=== PATIENT | female | born 1935 | race Caucasian/White ===

== ENCOUNTER 2019-03-19 11:39 | Emergency (ER) | payer MEDICARE ==
[2019-03-19 11:49] VITALS: BP 185/81; PULSE 73; RESP 18; TEMP 97.4
[2019-03-19 12:21] LABS: Basophils # (A) 0.1 k/uL (0-0.2); Basophils % (A) 1 %; Eosinophils # (A) 0.2 k/uL (0-0.7); Eosinophils % (A) 2 %; HCT 44.5 % (34.0-46.0); HGB 15.3 gm/dL (11.4-16.0); Lymphocytes # (A) 1.3 k/uL (1.0-4.8); Lymphocytes % (A) 16 %; MCH 29.4 pg (25.0-35.0); MCHC 34.2 g/dL (31.0-37.0); Mean Platelet Volume 7.3; Monocytes # (A) 0.6 k/uL (0-1.0); Monocytes % (A) 8 %; Neutrophils % (A) 72 %; Platelet Count 262 k/uL (150-450); RBC 5.18 m/uL (3.80-5.40); RDW 12.9 % (11.5-15.5); WBC 8.4 k/uL (3.8-10.6)
[2019-03-19 12:28] LABS: Calcium 9.8 mg/dL (8.4-10.2); Potassium 4.1 mmol/L (3.5-5.1)
[2019-03-19 12:35] LABS: INR 1.2 (<1.2); Partial Thromboplastin Time 31.1 sec (22.0-30.0)
--- NOTE | 2019-03-19 12:48 | ED ---
General Adult HPI - General Chief complaint: Head Injury Stated complaint: Fall Time Seen by Provider: 03/19/19 11:50 Source: patient Mode of arrival: ambulatory Limitations: no limitations - History of Present Illness Initial comments: Dictation was produced using [employer] dictation software. please excuse any grammatical, word or spelling errors. Chief Complaint: 84-year-old female past medical history of atrial fibrillation presents after head trauma. History of Present Illness: 84-year-old female earlier today she tripped on a ru g in her bathroom. Patient states she stumbled obliquely causing her to strike the posterior part of her head. Patient states she has some mild pain over the right occiput. Patient is currently on Xarelto for age or fibrillation. Patient denies any headache. She does complain of some point tenderness to the back of her head. No other pain complaints at this time. Denies any focal neurologic deficits. No vision changes The ROS documented in this emergency department record has been reviewed and confirmed by me. Those systems with pertinent positive or negative responses have been documented in the HPI. All other systems are other negative and/or noncontributory. PHYSICAL EXAM: General Impression: Alert and oriented x3, not in acute distress HEENT: Small 1 x 1 cm hematoma over the right occiput just off midline, extra- ocular movements intact, pupils equal and reactive to light bilaterally, mucous membranes moist. Cardiovascular: Heart regular rate and rhythm, S1&S2 audible, no murmurs, rubs or gallops Chest: Lungs clear to auscultation bilaterally, no rhonchi, no wheeze, no rales Abdomen: Bowel sounds present, abdomen soft, non-tender, non-distended, no organomegaly Musculoskeletal: Pulses present and equal in all extremities, no peripheral edema Motor: no focal deficits noted Neurological: CN II-XII grossly intact, no focal motor or sensory deficits noted Skin: Intact with no visualized rashes Psych: Normal affect and mood ED course: 84-year-old female presents with head contusion. She is on Xarelto for atrial fibrillation. As upon arrival are within acceptable limits. Patient's well-appearing with small evidence of contusion over the right occiput. Laboratory evaluation obtained. CBC unremarkable. Coag panel was within acceptable limits. Metabolic panel shows slight acidosis. Computed tomography scan of the head and C-spine were negative for any acute processes. Patient is reevaluated at bedside is well-appearing. She is ambulatory without complications. Discussed patient that she had some slight acidosis on her metabolic panel. She is advised to follow-up with her primary care physician regarding this. EKG interpretation: Ventricular rate 71, sinus rhythm, IA interval 210, QS 92, QTC 491. No IA prolongation, no QTC prolongation, no ST or T-wave changes noted. Overall, this EKG is unremarkable - Related Data Home Medications Medication Instructions Recorded Confirmed Aspirin 81 mg PO DAILY 11/08/14 12/07/15 Levothyroxine Sodium [Synthroid] 125 mcg PO DAILY 11/08/14 12/07/15 Lisinopril [Prinivil] 20 mg PO DAILY 11/08/14 12/07/15 Rivaroxaban [Xarelto] 20 mg PO HS 11/08/14 12/07/15 amLODIPine [Norvasc] 10 mg PO DAILY 11/08/14 12/07/15 Metoprolol Tartrate [Lopressor] 50 mg PO BID 11/10/14 12/07/15 Allergies Allergy/AdvReac Type Severity Reaction Status Date / Time Sulfa (Sulfonamide Allergy Rash/Hives Verified 12/07/15 23:07 Antibiotics) Review of Systems ROS Statement: Those systems with pertinent positive or pertinent negative responses have been documented in the HPI. ROS Other: All systems not noted in ROS Statement are negative. Past Medical History Past Medical History: Atrial Fibrillation, Cancer, Osteoarthritis (OA), Thyroid Disorder Additional Past Medical History / Comment(s): See Dr Pierson's H&P , BREAST CANCER, History of Any Multi-Drug Resistant Organisms: None Reported Past Surgical History: Hysterectomy, Joint Replacement Additional Past Surgical History / Comment(s): 01-22-15 EP STUDY/CARDIAC ABLATION . THER PAST MEDICAL HX INCLUDES: bilat knee REPLACMENTS, thyroidectomy, and lumpectomy with radiation in 1986 Past Anesthesia/Blood Transfusion Reactions: No Reported Reaction Past Psychological History: No Psychological Hx Reported Smoking Status: Never smoker Past Alcohol Use History: Occasional Past Drug Use History: None Reported - Past Family History Mother Family Medical History: Cancer Father History Unknown: Yes General Exam Limitations: no limitations Course Vital Signs 03/19/19 11:45 Temperature 97.4 F L Pulse Rate 73 Respiratory 18 Rate Blood Pressure 185/81 O2 Sat by Pulse 98 Oximetry Medical Decision Making - Lab Data Result diagrams: 03/19/19 12:02 03/19/19 12:02 Lab Results 03/19/19 03/19/19 03/19/19 Range/Units 12:02 12:02 12:02 WBC 8.4 (3.8-10.6) k/uL RBC 5.18 (3.80-5.40) m/uL Hgb 15.3 (11.4-16.0) gm/dL Hct 44.5 (34.0-46.0) % MCV 86.0 (80.0-100.0) fL MCH 29.4 (25.0-35.0) pg MCHC 34.2 (31.0-37.0) g/dL RDW 12.9 (11.5-15.5) % Plt Count 262 (150-450) k/uL Neutrophils % 72 % Lymphocytes % 16 % Monocytes % 8 % Eosinophils % 2 % Basophils % 1 % Neutrophils # 6.0 (1.3-7.7) k/uL Lymphocytes # 1.3 (1.0-4.8) k/uL Monocytes # 0.6 (0-1.0) k/uL Eosinophils # 0.2 (0-0.7) k/uL Basophils # 0.1 (0-0.2) k/uL PT 12.0 (9.0-12.0) sec INR 1.2 H (<1.2) APTT 31.1 H (22.0-30.0) sec Sodium 142 (137-145) mmol/L Potassium 4.1 (3.5-5.1) mmol/L Chloride 108 H (98-107) mmol/L Carbon Dioxide 21 L (22-30) mmol/L Anion Gap 13 mmol/L BUN 18 H (7-17) mg/dL Creatinine 0.74 (0.52-1.04) mg/dL Est GFR (CKD-EPI)AfAm 86 (>60 ml/min/1.73 sqM) Est GFR (CKD-EPI)NonAf 75 (>60 ml/min/1.73 sqM) Glucose 126 H (74-99) mg/dL Calcium 9.8 (8.4-10.2) mg/dL Disposition Clinical Impression: Closed head injury Disposition: HOME SELF-CARE Condition: Good Instructions (If sedation given, give patient instructions): Head Injury (ED) Additional Instructions: There is some slight abnormalities in metabolic panel. At advised that she follow-up with her primary care physician regarding this. Is patient prescribed a controlled substance at d/c from ED?: No Referrals: Lita Mayorga MD [Primary Care Provider] - 1-2 days Time of Disposition: 12:58
--- NOTE | 2019-03-19 12:49 | CT ---
EXAMINATION TYPE: CT brain jihan santos DATE OF EXAM: 03/19/2019 COMPARISON: NONE HISTORY: Fall, struck head against wall CT DLP: 1558.5 mGycm Automated exposure control for dose reduction was used. TECHNIQUE: CT scan of the head and cervical spine are performed without contrast. FINDINGS: BRAIN: There are mild, generalized changes of sulcal prominence and ventriculomegaly compatible with atrophic change. There is diffuse periventricular white matter lucency compatible with chronic white matter ischemic change. There is no acute focal lesion, mass effect or midline shift identified. I do not see evidence of intracranial blood. Visualized portions of the paranasal sinuses and mastoids are clear. The bony calvarium is intact. IMPRESSION: 1. NO ACUTE INTRACRANIAL ABNORMALITY. 2. MILD DEGENERATIVE CHANGE. FINDINGS: Visualized portions of the lungs are clear. Prevertebral soft tissues are normal. Vertebral body height and alignment are maintained. Atlantoaxial relationships are normal. There is mild, diffuse degenerative disc disease with relative sparing C2-3. There is mild hypertroph ic spondylosis throughout the cervical spine with relative sparing of C2-3. There is mild, diffuse un covertebral joint disease. There is mild facet arthropathy on the left at C2-3. No definite protrusio n is seen. No fractures are identified. IMPRESSION: 1. NO ACUTE OSSEOUS LESION. 2. MILD DEGENERATIVE CHANGE.
== END 2019-03-19 13:05 | disposition home or self-care (01) ==
LOC: EC 11:39
DX: S00.03XA Contusion of scalp, initial encounter (principal); E87.2 Acidosis; I48.91 Unspecified atrial fibrillation; M19.90 Unspecified osteoarthritis, unspecified site; E07.9 Disorder of thyroid, unspecified; Z88.2 Allergy status to sulfonamides; Z79.01 Long term (current) use of anticoagulants; Z79.82 Long term (current) use of aspirin; Z79.890 Hormone replacement therapy; Z79.899 Other long term (current) drug therapy; Z85.3 Personal history of malignant neoplasm of breast; Z92.3 Personal history of irradiation; Z98.890 Other specified postprocedural states; Z96.653 Presence of artificial knee joint, bilateral; W01.0XXA Fall on same level from slipping, tripping and stumbling without subsequent striking against object, initial encounter; Y92.002 Bathroom of unspecified non-institutional (private) residence as the place of occurrence of the external cause
CPT/HCPCS: 36415; 70450; 72125; 80048; 85025; 85610; 85730; 93005; 99284

== ENCOUNTER 2019-12-08 10:47 | Emergency (ER) | payer MEDICARE ==
[2019-12-08 11:08] VITALS: RESP 18
[2019-12-08] MEDS ORDERED: OXYMETAZOLINE 0.05% NASL SPRAY 1 SPRAY BOTTLE NASAL STA (11:08)
[2019-12-08] MEDS ORDERED: LIDOCAINE/EPINEPHR/TETRACAINE 5 ML BOTTLE TOPICAL STA (11:08)
--- NOTE | 2019-12-08 11:27 | ED ---
General Adult HPI - General Chief complaint: ENT Stated complaint: Bloody nose Time Seen by Provider: 12/08/19 11:08 Source: patient, RN notes reviewed Mode of arrival: ambulatory Limitations: no limitations - History of Present Illness Initial comments: 84-year-old female with a past medical history of atrial fibrillation, breast cancer, thyroid disorder presents to the emergency department for a chief complaint of nosebleed. Patient reports that she has had a nosebleed every morning for the past week and a half. States she has seen and he was told she has 3 vessels that are thin that are causing this bleeding. She has an appointment on December 18 to have this taken care of. Patient reports today she had an asthma starting around 7:30 that lasted for a few hours. However when patient came to the emergency room the bleeding stopped. Patient is on Xarelto for atrial fibrillation. Patient denies any other sources of bleeding. Patient has no other complaints at this time including shortness of breath, chest pain, abdominal pain, nausea or vomiting, headache, or visual changes. - Related Data Home Medications Medication Instructions Recorded Confirmed Aspirin 81 mg PO DAILY 11/08/14 12/07/15 Levothyroxine Sodium [Synthroid] 125 mcg PO DAILY 11/08/14 12/07/15 Rivaroxaban [Xarelto] 20 mg PO HS 11/08/14 12/07/15 amLODIPine [Norvasc] 10 mg PO DAILY 11/08/14 12/07/15 lisinopriL [Prinivil] 20 mg PO DAILY 11/08/14 12/07/15 Metoprolol Tartrate [Lopressor] 50 mg PO BID 11/10/14 12/07/15 Allergies Allergy/AdvReac Type Severity Reaction Status Date / Time Sulfa (Sulfonamide Allergy Rash/Hives Verified 12/08/19 11:07 Antibiotics) Review of Systems ROS Statement: Those systems with pertinent positive or pertinent negative responses have been documented in the HPI. ROS Other: All systems not noted in ROS Statement are negative. Past Medical History Past Medical History: Atrial Fibrillation, Cancer, Osteoarthritis (OA), Thyroid Disorder Additional Past Medical History / Comment(s): BREAST CANCER, History of Any Multi-Drug Resistant Organisms: None Reported Past Surgical History: Hysterectomy, Joint Replacement Additional Past Surgical History / Comment(s): 01-22-15 EP STUDY/CARDIAC ABLATION . THER PAST MEDICAL HX INCLUDES: bilat knee REPLACMENTS, thyroidectomy, and lumpectomy with radiation in 1986 Past Anesthesia/Blood Transfusion Reactions: No Reported Reaction Past Psychological History: No Psychological Hx Reported Smoking Status: Never smoker Past Alcohol Use History: Occasional Past Drug Use History: None Reported - Past Family History Mother Family Medical History: Cancer Father History Unknown: Yes General Exam Limitations: no limitations General appearance: alert, in no apparent distress Head exam: Present: atraumatic, normocephalic, normal inspection Eye exam: Present: normal appearance, PERRL, EOMI. Absent: scleral icterus, conjunctival injection, periorbital swelling ENT exam: Present: normal exam, normal oropharynx, mucous membranes moist, TM's normal bilaterally, normal external ear exam, other (No active nose bleeding at this time. I do not see any area to cauterize. ) Neck exam: Present: normal inspection, full ROM. Absent: tenderness, meningismus, lymphadenopathy Respiratory exam: Present: normal lung sounds bilaterally. Absent: respiratory distress, wheezes, rales, rhonchi, stridor Cardiovascular Exam: Present: regular rate, normal rhythm, normal heart sounds. Absent: systolic murmur, diastolic murmur, rubs, gallop, clicks Course Vital Signs 12/08/19 11:02 Temperature 98.1 F Pulse Rate 70 Respiratory 18 Rate Blood Pressure 165/93 O2 Sat by Pulse 18 L Oximetry Medical Decision Making - Medical Decision Making Patient is a well-appearing 84-year-old female. Patient does not have any active bleeding at this time. Patient mildly hypertensive in the emergency room states that her blood pressure is normally controlled but she was stressed from the events this morning. Patient is aware that the high blood pressure could contribute to nasal bleeding and she will follow-up with her doctor for this. I did offer intervention of Afrin to prevent any rebleeding however patient does not want this at this time. States she was told by ENT that Flonase is what caused these nosebleeds and she would prefer to speak with her ENT specialist before using the Afrin. She was given a nasal clamp. I did offer to monitor patient in the emergency room to ensure no rebleeding starts however patient is anxious for discharge. I did discuss applying clamp for 20 minutes after using Afrin if the bleeding starts again. If she cannot get this to stop she will return to the emergency room. Otherwise she will speak with her ENT today about increase in nasal bleeding. Disposition Clinical Impression: Epistaxis Disposition: HOME SELF-CARE Condition: Good Instructions (If sedation given, give patient instructions): Nosebleed (ED) Additional Instructions: If bleeding starts make sure to spray Afrin in each nostril and clamp for 20 minutes. If bleeding does not stop repeat this process one more time. Please talk with your doctor about your increase in nosebleeds. If you have any worsen ing symptoms or cannot get bleeding to stop return to the emergency room. Is patient prescribed a controlled substance at d/c from ED?: No Referrals: Lita Mayorga MD [Primary Care Provider] - 1-2 days Time of Disposition: 11:25
[2019-12-08 11:59] VITALS: BP 160/89; PULSE 63; TEMP 98
== END 2019-12-08 11:45 | disposition home or self-care (01) ==
LOC: EC 10:47
DX: I48.91 Unspecified atrial fibrillation (principal); I10 Essential (primary) hypertension; M19.90 Unspecified osteoarthritis, unspecified site; E07.9 Disorder of thyroid, unspecified; Z85.3 Personal history of malignant neoplasm of breast; Z79.82 Long term (current) use of aspirin; Z79.899 Other long term (current) drug therapy; Z79.890 Hormone replacement therapy; Z88.2 Allergy status to sulfonamides; Z96.653 Presence of artificial knee joint, bilateral; Z90.89 Acquired absence of other organs; Z98.890 Other specified postprocedural states
CPT/HCPCS: 99283

== ENCOUNTER 2020-12-26 21:02 | Emergency (ER) | payer MEDICARE ==
[2020-12-26 21:56] VITALS: BP 147/61; PULSE 76; RESP 20; TEMP 98.9
[2020-12-26] MEDS ORDERED: OXYMETAZOLINE 0.05% NASL SPRAY 1 SPRAY BOTTLE NASAL STA (22:36)
--- NOTE | 2020-12-26 22:37 | ED ---
ENT HPI - General Chief complaint: ENT Stated complaint: Nose Bleed Time Seen by Provider: 12/26/20 22:11 Source: patient, RN notes reviewed, old records reviewed Mode of arrival: ambulatory Limitations: no limitations - History of Present Illness Initial comments: This is a 85-year-old female to the ER today for evaluation. Patient is age a fibrillation on Geraldo no trauma coming in for evaluation of nosebleed patient has had a persistent episodic for weakness she has follow-up with urine also don't Dr. but unable to find significant cause. Patient presents today for recurrent nosebleed significant bleeding with clot MD complaint: epistaxis -: week(s) Location: nose Severity: moderate Severity scale (1-10): 7 Quality: sharp Consistency: constant Improves with: none Worsens with: none Context-Epistaxis: warfarin use, history of similar Context- Dental: trauma Context- Ear: other (none) Associated Symptoms: pain with swallowing, sore throat - Related Data Home Medications Medication Instructions Recorded Confirmed Aspirin 81 mg PO DAILY 11/08/14 12/08/19 Levothyroxine Sodium [Synthroid] 125 mcg PO DAILY 11/08/14 12/08/19 Rivaroxaban [Xarelto] 20 mg PO HS 11/08/14 12/08/19 amLODIPine [Norvasc] 10 mg PO DAILY 11/08/14 12/08/19 lisinopriL [Prinivil] 20 mg PO DAILY 11/08/14 12/08/19 Metoprolol Tartrate [Lopressor] 50 mg PO BID 11/10/14 12/08/19 Allergies Allergy/AdvReac Type Severity Reaction Status Date / Time Sulfa (Sulfonamide Allergy Rash/Hives Verified 12/26/20 21:52 Antibiotics) Review of Systems ROS Statement: Those systems with pertinent positive or pertinent negative responses have been documented in the HPI. ROS Other: All systems not noted in ROS Statement are negative. Past Medical History Past Medical History: Atrial Fibrillation, Cancer, Osteoarthritis (OA), Thyroid Disorder Additional Past Medical History / Comment(s): BREAST CANCER, History of Any Multi-Drug Resistant Organisms: None Reported Past Surgical History: Hysterectomy, Joint Replacement Additional Past Surgical History / Comment(s): 01-22-15 EP STUDY/CARDIAC ABLATION . THER PAST MEDICAL HX INCLUDES: bilat knee REPLACMENTS, thyroidectomy, and lumpectomy with radiation in 1986 Past Anesthesia/Blood Transfusion Reactions: No Reported Reaction Past Psychological History: No Psychological Hx Reported Smoking Status: Never smoker Past Alcohol Use History: Occasional Past Drug Use History: None Reported - Past Family History Mother Family Medical History: Cancer Father History Unknown: Yes General Exam Limitations: no limitations General appearance: alert, in no apparent distress Head exam: Present: atraumatic, normocephalic, normal inspection Eye exam: Present: normal appearance, PERRL, EOMI. Absent: scleral icterus, conjunctival injection, periorbital swelling ENT exam: Present: normal exam, mucous membranes moist, other (Right nare is bleeding significantly) Neck exam: Present: normal inspection. Absent: tenderness, meningismus, lymphadenopathy Respiratory exam: Present: normal lung sounds bilaterally. Absent: respiratory distress, wheezes, rales, rhonchi, stridor Cardiovascular Exam: Present: regular rate, normal rhythm, normal heart sounds. Absent: systolic murmur, diastolic murmur, rubs, gallop, clicks GI/Abdominal exam: Present: soft, normal bowel sounds. Absent: distended, tenderness, guarding, rebound, rigid Extremities exam: Present: normal inspection, full ROM, normal capillary refill. Absent: tenderness, pedal edema, joint swelling, calf tenderness Back exam: Present: normal inspection Neurological exam: Present: alert, oriented X3, CN II-XII intact Psychiatric exam: Present: normal affect, normal mood Skin exam: Present: warm, dry, intact, normal color. Absent: rash Course Vital Signs 12/26/20 21:52 Temperature 98.9 F Pulse Rate 76 Respiratory 20 Rate Blood Pressure 147/61 O2 Sat by Pulse 99 Oximetry - Reevaluation(s) Reevaluation #1: 12/27/20 02:05 Medical record is reviewed Reevaluation #2: 12/27/20 02:05 Multiple rechecks were done and patient finally was able to have cessation of bleeding - Consultations Consultation #1: (Dr. Aly who agrees to follow-up with patient Procedures - Procedures Initial comment: Epistaxis procedure Clots and bleeding is clear Afrin and nasal clamp used Area is swabbed with silver nitrate Patient has continued bleeding Again causing bleeding are clear Afrin clamp again used Patient's right naris packed with Merocel Medical Decision Making - Medical Decision Making 85 female with some difficulty was able to the packing, patient is on Ahlquist will hold on Ahlquist and follow-up with Dr. Aly in the morning Disposition Clinical Impression: Right-sided epistaxis, Coagulopathy Disposition: HOME SELF-CARE Condition: Good Instructions (If sedation given, give patient instructions): Nosebleed (ED) Is patient prescribed a controlled substance at d/c from ED?: No Referrals: Lita Mayorga MD [Primary Care Provider] - 1-2 days
[2020-12-26] MEDS ORDERED: SILVER NITRATE APPLICATOR 1 EACH STICK..EA. TOPICAL STA (23:26)
== END 2020-12-27 00:46 | disposition home or self-care (01) ==
LOC: EC 21:02
DX: R04.0 Epistaxis (principal); D68.9 Coagulation defect, unspecified; I48.91 Unspecified atrial fibrillation; M19.90 Unspecified osteoarthritis, unspecified site; E07.9 Disorder of thyroid, unspecified; Z79.82 Long term (current) use of aspirin; Z88.2 Allergy status to sulfonamides; Z85.3 Personal history of malignant neoplasm of breast; Z90.710 Acquired absence of both cervix and uterus; Z96.653 Presence of artificial knee joint, bilateral
CPT/HCPCS: 30901; 99283

== ENCOUNTER 2021-09-09 14:21 | Emergency (ER) | payer MEDICARE ==
[2021-09-09 15:02] VITALS: BP 119/64; PULSE 69; TEMP 98.2
[2021-09-09] MEDS ORDERED: HYDROcodone/APAP 5-325MG 1 EACH TAB PO STA (15:34)
--- NOTE | 2021-09-09 16:28 | XR ---
EXAMINATION TYPE: XR humerus RT, XR shoulder complete RT DATE OF EXAM: 09/09/2021 4:09 PM INDICATION: Patient age:Female; 86 years old; Reason for study: Pain; COMPARISON: Chest radiograph 12/08/2015. TECHNIQUE: The right humerus was examined in AP, internally rotated and axillary projections. , The right shoulder was examined in external/internal and scapular Y view. FINDINGS: Degeneration changes of the right shoulder with joint space narrowing, osteophyte formation and sclerosis of the adjoining humeral head and glenoid. Multiple calcific densities likely represen ting joint bodies within the right shoulder. There is no evidence for acute fracture. Mild hypertroph ic changes of the acromioclavicular joint. IMPRESSION: 1. 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 2. No evidence of fracture.
--- NOTE | 2021-09-09 16:29 | ED ---
Extremity Problem HPI - General Chief complaint: Extremity Injury, Upper Stated complaint: Shouler Pain Time Seen by Provider: 09/09/21 15:29 Source: patient, RN notes reviewed Mode of arrival: ambulatory Limitations: no limitations - History of Present Illness Initial comments: This is an 86-year-old female who presents to the emergency department for right arm pain. Patient states that for the last 2 weeks she was on vacation, and she was pushing her walker through the sand. For the last week, the pain has been getting progressively worse. It is starting in the right shoulder and going down to the right elbow. She is barely able to sleep at night due to the pain and is having difficulty moving her arm. Denies any known injury, but wonders if this was caused by pushing her walker through the sand. Believes that the shoulder does feel slightly swollen. Denies any fevers, chills, sore throat, cough, dyspnea, chest pain, palpit ations, abdominal pain, nausea, vomiting, diarrhea, back pain, or headaches. MD Complaint: extremity pain, extremity swelling Onset/Timin -: week(s) Location: right, upper extremity History of Same: No Radiation: proximal Associated Symptoms: denies other symptoms - Related Data Home Medications Medication Instructions Recorded Confirmed Aspirin 81 mg PO DAILY 11/08/14 12/08/19 Levothyroxine Sodium [Synthroid] 125 mcg PO DAILY 11/08/14 12/08/19 Rivaroxaban [Xarelto] 20 mg PO HS 11/08/14 12/08/19 amLODIPine [Norvasc] 10 mg PO DAILY 11/08/14 12/08/19 lisinopriL [Prinivil] 20 mg PO DAILY 11/08/14 12/08/19 Metoprolol Tartrate [Lopressor] 50 mg PO BID 11/10/14 12/08/19 Previous Rx's Medication Instructions Recorded traMADol HCl [Ultram] 50 mg PO Q4HR PRN 3 Days #18 tab 09/09/21 Allergies Allergy/AdvReac Type Severity Reaction Status Date / Time Sulfa (Sulfonamide Allergy Rash/Hives Verified 09/09/21 15:02 Antibiotics) Review of Systems ROS Statement: Those systems with pertinent positive or pertinent negative responses have been documented in the HPI. ROS Other: All systems not noted in ROS Statement are negative. Past Medical History Past Medical History: Atrial Fibrillation, Cancer, Osteoarthritis (OA), Thyroid Disorder Additional Past Medical History / Comment(s): BREAST CANCER, History of Any Multi-Drug Resistant Organisms: None Reported Past Surgical History: Hysterectomy, Joint Replacement Additional Past Surgical History / Comment(s): 01-22-15 EP STUDY/CARDIAC ABLATION . THER PAST MEDICAL HX INCLUDES: bilat knee REPLACMENTS, thyroidectomy, and lumpectomy with radiation in 1986 Past Anesthesia/Blood Transfusion Reactions: No Reported Reaction Past Psychological History: No Psychological Hx Reported Smoking Status: Never smoker Past Alcohol Use History: Occasional Past Drug Use History: None Reported - Past Family History Mother Family Medical History: Cancer Father History Unknown: Yes General Exam Limitations: no limitations General appearance: alert, in distress Head exam: Present: atraumatic, normocephalic, normal inspection Respiratory exam: Present: normal lung sounds bilaterally. Absent: respiratory distress, wheezes, rales, rhonchi, stridor Cardiovascular Exam: Present: regular rate, normal rhythm, normal heart sounds. Absent: systolic murmur, diastolic murmur, rubs, gallop, clicks Extremities exam: Present: other (Tender to palpation over the right humeral head. Minor increase in swelling and possible overlying erythema vs. sun exposure. Very limited passive range of motion secondary to pain. 2+ radial pulses and capillary refill less than 1 second bilaterally.) Neurological exam: Present: alert, oriented X3, CN II-XII intact Psychiatric exam: Present: normal affect, normal mood Skin exam: Present: warm, dry, intact, normal color. Absent: rash Course Vital Signs 09/09/21 09/09/21 14:59 18:28 Temperature 98.2 F Pulse Rate 69 Respiratory 20 18 Rate Blood Pressure 119/64 O2 Sat by Pulse 98 Oximetry Medical Decision Making - Medical Decision Making This is an 86-year-old female who presents to the emergency department for right shoulder pain. X-ray of the right shoulder reveals loose bodies in the right shoulder joint. Discussed with the patient that this is likely a result of overuse that has been exacerbated by trying to push her walker through the sand. Given the minor increase in swelling, an ultrasound was obtained. This does not reveal any signs of a blood clot. Patient is established with Dr. Fields, orthopedics. Instructed her to contact the office in the morning for a follow- up appointment this week to discuss management. The patient was given a sling and a short course of Tramadol for pain. Return precautions reviewed in depth, the patient is instructed to return to the emergency department with any new, worsening, or concerning symptoms. Patient verbalized understanding. This case was discussed in detail with the attending ED physician. Presentation, findings, and treatment plan discussed in detail as well. - Radiology Data Radiology results: report reviewed, image reviewed Disposition Clinical Impression: Intra-articular loose body Disposition: HOME SELF-CARE Instructions (If sedation given, give patient instructions): Osteoarthritis (ED) Additional Instructions: Return to the emergency department with any new, worsening, or concerning symptoms. Contact Dr. Fields's office in the morning, and state that you need an ER follow-up appointment, and that you were told to have loose joint bodies in your right shoulder. You can see any provider for this issue, it does not have to be Dr. Fields. Prescriptions: traMADol HCl [Ultram] 50 mg PO Q4HR PRN 3 Days #18 tab PRN Reason: Pain Is patient prescribed a controlled substance at d/c from ED?: Yes When asked, does pt state using other controlled substances?: No If prescribed controlled substance>3 days was MAPS reviewed?: Prescribed <3 Days Referrals: None,Stated [Primary Care Provider] - 1-2 days Raymond Fields MD [STAFF PHYSICIAN] - 1-2 days
[2021-09-09] MEDS ORDERED: traMADol 50 MG TAB PO STA (16:43)
--- NOTE | 2021-09-09 18:04 | US ---
EXAMINATION TYPE: US venous doppler duplex UE RT DATE OF EXAM: 09/09/2021 COMPARISON: NONE CLINICAL HISTORY: Pain and swelling, limited ROM. Right arm pain SIDE PERFORMED: Right Right Arm: Appears negative for DVT IMPRESSION: No evidence of deep vein thrombosis in the right arm.
[2021-09-09] MEDS ORDERED: traMADol 50 MG STARTER PACK 3 TAB BTL PO STA (18:14)
[2021-09-09 18:55] VITALS: RESP 18
== END 2021-09-09 18:28 | disposition home or self-care (01) ==
LOC: EC 14:21
DX: M24.011 Loose body in right shoulder (principal); E07.9 Disorder of thyroid, unspecified; Z79.899 Other long term (current) drug therapy; Z88.2 Allergy status to sulfonamides
CPT/HCPCS: 99284

== ENCOUNTER 2023-02-09 08:31 | Inpatient (IN) | payer MEDICARE ==
--- NOTE | 2023-02-09 08:43 | ED ---
General Adult HPI - General Chief complaint: Shortness of Breath Stated complaint: SOB Time Seen by Provider: 02/09/23 08:35 Source: patient, EMS, RN notes reviewed, old records reviewed Mode of arrival: EMS Limitations: no limitations - History of Present Illness Initial comments: This is an 87-year-old female presents to the emergency department stating that she is noted that anytime she is up and around she becomes short of breath. Patient states when she sits down she is no longer short of breath. Patient denies any pain per patient denies any fever chills or cough per patient has congestion or any sore throat. Patient denies any chest pain or palpitations. Patient states she does have a history of atrial fibrillation. Patient denies any back pain. Patient denies abdominal pain. Patient denies any nausea vomiting diarrhea. Patient states she hasn't been eating properly last few days because she been running around a lot of things. - Related Data Home Medications Medication Instructions Recorded Confirmed Aspirin 81 mg PO DAILY 11/08/14 12/08/19 Levothyroxine Sodium [Synthroid] 125 mcg PO DAILY 11/08/14 12/08/19 Rivaroxaban [Xarelto] 20 mg PO HS 11/08/14 12/08/19 amLODIPine [Norvasc] 10 mg PO DAILY 11/08/14 12/08/19 lisinopriL [Prinivil] 20 mg PO DAILY 11/08/14 12/08/19 Metoprolol Tartrate [Lopressor] 50 mg PO BID 11/10/14 12/08/19 Previous Rx's Medication Instructions Recorded traMADol HCl [Ultram] 50 mg PO Q4HR PRN 3 Days #18 tab 09/09/21 Allergies Allergy/AdvReac Type Severity Reaction Status Date / Time Sulfa (Sulfonamide Allergy Rash/Hives Verified 02/09/23 08:39 Antibiotics) Review of Systems ROS Statement: Those systems with pertinent positive or pertinent negative responses have been documented in the HPI. ROS Other: All systems not noted in ROS Statement are negative. Past Medical History Past Medical History: Atrial Fibrillation, Cancer, Osteoarthritis (OA), Thyroid Disorder Additional Past Medical History / Comment(s): BREAST CANCER, History of Any Multi-Drug Resistant Organisms: None Reported Past Surgical History: Hysterectomy, Joint Replacement Additional Past Surgical History / Comment(s): 11-30-15 EP STUDY/CARDIAC ABLATION . THER PAST MEDICAL HX INCLUDES: bilat knee REPLACMENTS, thyroidectomy, and lumpectomy with radiation in 1986 Past Anesthesia/Blood Transfusion Reactions: No Reported Reaction Past Psychological History: No Psychological Hx Reported Smoking Status: Never smoker Past Alcohol Use History: Occasional Past Drug Use History: None Reported - Past Family History Mother Family Medical History: Cancer Father History Unknown: Yes General Exam - General Exam Comments Initial Comments: GENERAL: Patient is well-developed and well-nourished. Patient is nontoxic and well- hydrated and is in no acute distress. ENT: Neck is soft and supple. No significant lymphadenopathy is noted. Oropharynx is clear. Moist mucous membranes. Neck has full range of motion without eliciting any pain. EYES: The sclera were anicteric and conjunctiva were pink and moist. Extraocular movements were intact and pupils were equal round and reactive to light. Eyelids were unremarkable. PULMONARY: Unlabored respirations. Good breath sounds bilaterally. No audible rales rhonchi or wheezing was noted. CARDIOVASCULAR: There is a regular rate and rhythm without any murmurs gallops or rubs. ABDOMEN: Soft and nontender with normal bowel sounds. SKIN: Skin is clear with no lesions or rashes and otherwise unremarkable. NEUROLOGIC: Patient is alert and oriented x3. Cranial nerves II through XII are grossly intact. Motor and sensory are also intact. Normal speech, volume and content. Symmetrical smile. MUSCULOSKELETAL: Normal extremities with adequate strength and full range of motion. No lower extremity swelling or edema. No calf tenderness. LYMPHATICS: No significant lymphadenopathy is noted PSYCHIATRIC: Normal psychiatric evaluation. Limitations: no limitations Course Vital Signs 02/09/23 08:33 Temperature 97.9 F Pulse Rate 107 H Respiratory 18 Rate Blood Pressure 103/48 O2 Sat by Pulse 98 Oximetry Medical Decision Making - Medical Decision Making EKG was interpreted by myself. EKG shows atrial for ablation with rapid ventricular response at a rate of 108 bpm QRS is 92 QT interval 373 QTC is 437. No ST segment elevation or depression is noted Was pt. sent in by a medical professional or institution (, [facility], [employer], urgent care, hospital, or [facility]...) When possible be specific @ -No Did you speak to anyone other than the patient for history (EMS, parent, family, police, friend...)? What history was obtained from this source @ -No Did you review nursing and triage notes (agree or disagree)? Why? @ -I reviewed and agree with nursing and triage notes Were old charts reviewed (outside hosp., previous admission, EMS record, old EKG, old radiological studies, urgent care reports/EKG's, [facility] records)? Report findings @ -I Reviewed prior charts from prior [facility] this patient Differential Diagnosis (chest pain, altered mental status, abdominal pain women, abdominal pain men, vaginal bleeding, weakness, fever, dyspnea, syncope, headache, dizziness, GI bleed, back pain, seizure, CVA, palpatations, mental health, musculoskeletal)? @ -Differential Dyspnea: Coronary syndrome, arrhythmia, tamponade, asthma, COPD, pulmonary embolism, pneumonia, pneumothorax, pulmonary effusion, anaphylaxis, diabetic ketoacidosis, flailed chest, pulmonary contusion, diaphragmatic rupture, anemia, neuromuscular, this is not meant to be an all-inclusive list. EKG interpreted by me (3pts min.). @ -As above X-rays interpreted by me (1pt min.). @ -Chest x-ray shows no acute abnormality CT interpreted by me (1pt min.). @ -None done U/S interpreted by me (1pt. min.). @ -None done What testing was considered but not performed or refused? (CT, X-rays, U/S, labs)? Why? @ -None What meds were considered but not given or refused? Why? @ -None Did you discuss the management of the patient with other professionals (professionals i.e. , PA, [employer]ICER, lab, RT, psych nurse, social media project manager, fingernail sculpturer, teacher, guest relation officer, therapeutic case manager)? Give summary @ -Spoke with Dr. Osullivan she agreed to admit the patient Was smoking cessation discussed for >3mins.? @ -No Was critical care preformed (if so, how long)? @ -No Were there social determinants of health that impacted care today? How? (Homelessness, low income, unemployed, alcoholism, drug addiction, transportation, low edu. Level, literacy, decrease access to med. care, halfway, rehab)? @ -No Was there de-escalation of care discussed even if they declined (Discuss DNR or withdrawal of care, Hospice)? DNR status @ -No What co-morbidities impacted this encounter? (DM, HTN, Smoking, COPD, CAD, Cancer, CVA, ARF, Chemo, Hep., AIDS, mental health diagnosis, sleep apnea, morbid obesity)? @ -None Was patient admitted / discharged? Hospital course, mention meds given and r oute, prescriptions, significant lab abnormalities, going to OR and other pertinent info. @ -Patient's hemoglobin was 8.5 which is significantly lower than her last draw. Patient had a type and cross done and the occult blood was also done. I spoke with Dr. Osullivan she agreed to admit the patient I consulted Dr. Sidhu Undiagnosed new problem with uncertain prognosis? @ -No Drug Therapy requiring intensive monitoring for toxicity (Heparin, Nitro, Insulin, Cardizem)? @ -No Were any procedures done? @ -No Diagnosis/symptom? @ -Anemia Acute, or Chronic, or Acute on Chronic? @ -Acute Uncomplicated (without systemic symptoms) or Complicated (systemic symptoms)? @ -Complicated Side effects of treatment? @ -No Exacerbation, Progression, or Severe Exacerbation? @ -No Poses a threat to life or bodily function? How? (Chest pain, [place], [place], pneumonia, PE, COPD, DKA, ARF, appy, cholecystitis, CVA, Diverticulitis, Homicidal, Suicidal, threat to staff... and all critical care pts) @ -Yes this could lead to hypoxia and end organ dysfunction Diagnosis/symptom? @ -GI bleed Acute, or Chronic, or Acute on Chronic? @ -Acute Uncomplicated (without systemic symptoms) or Complicated (systemic symptoms)? @ -Complicated Side effects of treatment? @ -none Exacerbation, Progression, or Severe Exacerbation] @ -no Poses a threat to life or bodily function? @ -Yes this could lead to further anemia and hypoxia and end organ dysfunction - Lab Data Result diagrams: 02/09/23 08:40 02/09/23 08:40 Lab Results 02/09/23 02/09/23 02/09/23 Range/Units 08:40 08:40 08:40 WBC 11.1 H (3.8-10.6) k/uL RBC 2.85 L (3.80-5.40) m/uL Hgb 8.5 L D (11.4-16.0) gm/dL Hct 24.6 L (34.0-46.0) % MCV 86.2 (80.0-100.0) fL MCH 29.9 (25.0-35.0) pg MCHC 34.7 (31.0-37.0) g/dL RDW 14.5 (11.5-15.5) % Plt Count 220 (150-450) k/uL MPV 8.5 Neutrophils % 83 % Lymphocytes % 11 % Monocytes % 4 % Eosinophils % 1 % Basophils % 0 % Neutrophils # 9.3 H (1.3-7.7) k/uL Lymphocytes # 1.2 (1.0-4.8) k/uL Monocytes # 0.5 (0-1.0) k/uL Eosinophils # 0.1 (0-0.7) k/uL Basophils # 0.0 (0-0.2) k/uL PT 13.4 H (10.0-12.5) sec INR 1.3 H (<1.2) APTT 25.7 (22.0-30.0) sec D-Dimer 0.59 (<0.60) mg/L FEU Sodium (137-145) mmol/L Potassium (3.5-5.1) mmol/L Chloride (98-107) mmol/L Carbon Dioxide (22-30) mmol/L Anion Gap mmol/L BUN (7-17) mg/dL Creatinine (0.52-1.04) mg/dL Est GFR (CKD-EPI)AfAm (>60 ml/min/1.73 sqM) Est GFR (CKD-EPI)NonAf (>60 ml/min/1.73 sqM) Glucose (74-99) mg/dL Plasma Lactic Acid Nicolás (0.7-2.0) mmol/L Calcium (8.4-10.2) mg/dL Magnesium (1.6-2.3) mg/dL Total Bilirubin (0.2-1.3) mg/dL AST (14-36) U/L ALT (4-34) U/L Alkaline Phosphatase (38-126) U/L Troponin I (0.000-0.034) ng/mL NT-Pro-B Natriuret Pep pg/mL Total Protein (6.3-8.2) g/dL Albumin (3.5-5.0) g/dL Influenza Type A (PCR) Not Detected (Not Detectd) Influenza Type B (PCR) Not Detected (Not Detectd) RSV (PCR) Not Detected (Not Detectd) SARS-CoV-2 (PCR) Not Detected (Not Detectd) 02/09/23 02/09/23 02/09/23 Range/Units 08:40 08:40 08:40 WBC (3.8-10.6) k/uL RBC (3.80-5.40) m/uL Hgb (11.4-16.0) gm/dL Hct (34.0-46.0) % MCV (80.0-100.0) fL MCH (25.0-35.0) pg MCHC (31.0-37.0) g/dL RDW (11.5-15.5) % Plt Count (150-450) k/uL MPV Neutrophils % % Lymphocytes % % Monocytes % % Eosinophils % % Basophils % % Neutrophils # (1.3-7.7) k/uL Lymphocytes # (1.0-4.8) k/uL Monocytes # (0-1.0) k/uL Eosinophils # (0-0.7) k/uL Basophils # (0-0.2) k/uL PT (10.0-12.5) sec INR (<1.2) APTT (22.0-30.0) sec D-Dimer (<0.60) mg/L FEU Sodium 136 L (137-145) mmol/L Potassium 3.8 (3.5-5.1) mmol/L Chloride 101 (98-107) mmol/L Carbon Dioxide 21 L (22-30) mmol/L Anion Gap 14 mmol/L BUN 63 H (7-17) mg/dL Creatinine 1.05 H (0.52-1.04) mg/dL Est GFR (CKD-EPI)AfAm 55 (>60 ml/min/1.73 sqM) Est GFR (CKD-EPI)NonAf 48 (>60 ml/min/1.73 sqM) Glucose 169 H (74-99) mg/dL Plasma Lactic Acid Nicolás 4.7 H* (0.7-2.0) mmol/L Calcium 9.5 (8.4-10.2) mg/dL Magnesium 1.9 (1.6-2.3) mg/dL Total Bilirubin 0.4 (0.2-1.3) mg/dL AST 22 (14-36) U/L ALT 19 (4-34) U/L Alkaline Phosphatase 86 (38-126) U/L Troponin I <0.012 (0.000-0.034) ng/mL NT-Pro-B Natriuret Pep 260 pg/mL Total Protein 6.0 L (6.3-8.2) g/dL Albumin 3.9 (3.5-5.0) g/dL Influenza Type A (PCR) (Not Detectd) Influenza Type B (PCR) (Not Detectd) RSV (PCR) (Not Detectd) SARS-CoV-2 (PCR) (Not Detectd) Disposition Clinical Impression: Anemia, GI bleed Disposition: ADMITTED IP TO THIS HOSP Referrals: Lashae Gunn MD [Primary Care Provider] - 1-2 days Time of Disposition: 10:43
[2023-02-09 09:06] LABS: Basophils % (A) 0 %; Eosinophils # (A) 0.1 k/uL (0-0.7); Eosinophils % (A) 1 %; HCT 24.6 % (34.0-46.0); Lymphocytes # (A) 1.2 k/uL (1.0-4.8); Lymphocytes % (A) 11 %; MCH 29.9 pg (25.0-35.0); MCHC 34.7 g/dL (31.0-37.0); MCV 86.2 fL (80.0-100.0); Mean Platelet Volume 8.5; Monocytes # (A) 0.5 k/uL (0-1.0); Monocytes % (A) 4 %; Neutrophils # (A) 9.3 k/uL (1.3-7.7); Neutrophils % (A) 83 %; Platelet Count 220 k/uL (150-450); RBC 2.85 m/uL (3.80-5.40); RDW 14.5 % (11.5-15.5); WBC 11.1 k/uL (3.8-10.6)
--- NOTE | 2023-02-09 09:11 | XR ---
EXAMINATION TYPE: XR chest 2V DATE OF EXAM: 02/09/2023 COMPARISON: 12/07/1959 TECHNIQUE: PA and lateral views submitted. HISTORY: Difficulty breathing FINDINGS: The lungs are clear and there is no pneumothorax, pleural effusion, or focal pneumonia. Mild cardiom egaly and no overt failure. Osseous structures demonstrate hypertrophic and degenerative changes of t he spine. Postsurgical change right shoulder and arthropathy left shoulder. Atherosclerotic change ao rta. Underlying COPD. IMPRESSION: 1. No acute process. Correlate for COPD.
[2023-02-09 09:13] LABS: ALT 19 U/L (4-34); AST 22 U/L (14-36); African American GFR (CKD) 55 (>60 ml/min/1.73 sqM); Albumin 3.9 g/dL (3.5-5.0); Alkaline Phosphatase 86 U/L (38-126); Anion Gap 14 mmol/L; Blood Urea Nitrogen 63 mg/dL (7-17); Calcium 9.5 mg/dL (8.4-10.2); Carbon Dioxide 21 mmol/L (22-30); Chloride 101 mmol/L (98-107); Glucose 169 mg/dL (74-99); Magnesium 1.9 mg/dL (1.6-2.3); Non-African American GFR(CKD) 48 (>60 ml/min/1.73 sqM); Potassium 3.8 mmol/L (3.5-5.1); Sodium 136 mmol/L (137-145); Total Bilirubin 0.4 mg/dL (0.2-1.3)
[2023-02-09 09:15] LABS: INR 1.3 (<1.2); Partial Thromboplastin Time 25.7 sec (22.0-30.0); Prothrombin Time 13.4 sec (10.0-12.5)
[2023-02-09 09:20] LABS: HGB 8.5 gm/dL (11.4-16.0)
[2023-02-09 09:21] LABS: NT-Pro-B-Type Natriuretic Pept 260 pg/mL
[2023-02-09] MEDS ORDERED: SODIUM CHLORIDE 0.9% 1,000 ML IV ONE ×2 (09:34→10:47)
--- NOTE | 2023-02-09 13:20 | P.CONS ---
History of Present Illness - Reason for Consult Consult date: 02/09/23 GI bleed Requesting physician: Kraig Comer - Chief Complaint Shortness of breath - History of Present Illness This is an 87-year-old female who presented to the emergency department with complaints of shortness of breath with exertion. She has a past medical history including atrial fibrillation on Xarelto last taken yesterday, breast cancer, arthritis, and thyroid disorder. Patient denies any other symptoms other than shortness of breath when she is up at next started which have resolved when she sits down. She denies any abdominal pain epigastric pain, nausea, vomiting, bright red stools or black stools. She denies any recent symptoms such as cough, fever, body aches or chills. Admitting labs WBC 11.1 and hemoglobin 8.5 hematocrit 24 platelet count 220,000, INR 1.3 sodium 136 potassium 3.8 BUN 63 creatinine 1.05 lactic acid 4.7 total bilirubin 0.4 AST 22 ALT 19 alkaline phosphatase 86. Reviewing patient's prior lab studies patient's hemoglobin on 12/31/2022 was 13.3. No Previous history of anemia. Colonoscopy about 25-30 years ago. Does not believe she had previous EGD. She does complain of acid reflux and indigestion and uses [place] as needed. Denies any NSAID use. Review of Systems REVIEW OF SYSTEMS: CARDIOPULMONARY: No chest pain. She complains of shortness of breath with exertion, improves with rest. No associated cough. Gastrointestinal: No abdominal pain or epigastric pain.. No nausea or vomiting. No hematemesis, coffee-ground emesis. No rectal bleeding, or melena. GENITOURINARY: No dysuria or hematuria. MUSCULOSKELETAL: Reports normal range of motion., Joint pain. SKIN: No rashes. No jaundice. ENDOCRINE: No chills, fevers. No excessive weight gain or loss. No polydipsia or polyuria. PSYCHIATRIC: Unremarkable. NEUROLOGY: No change in mental status. Denies dizziness, headache. ENT: Vision unremarkable. CONSTITUTIONAL: No recent weight loss. No fever, chills, night sweats. Past Medical History Past Medical History: Atrial Fibrillation, Cancer, Osteoarthritis (OA), Thyroid Disorder Additional Past Medical History / Comment(s): BREAST CANCER, History of Any Multi-Drug Resistant Organisms: None Reported Past Surgical History: Hysterectomy, Joint Replacement Additional Past Surgical History / Comment(s): 01-22-15 EP STUDY/CARDIAC ABLATION . THER PAST MEDICAL HX INCLUDES: bilat knee REPLACMENTS, thyroidectomy, and lumpectomy with radiation in 1986 Past Anesthesia/Blood Transfusion Reactions: No Reported Reaction Past Psychological History: No Psychological Hx Reported Smoking Status: Never smoker Past Alcohol Use History: Occasional Past Drug Use History: None Reported - Past Family History Mother Family Medical History: Cancer Father History Unknown: Yes Medications and Allergies Home Medications Medication Instructions Recorded Confirmed Type Levothyroxine Sodium [Synthroid] 125 mcg PO DAILY 11/08/14 02/09/23 History Rivaroxaban [Xarelto] 20 mg PO HS 11/08/14 02/09/23 History amLODIPine [Norvasc] 10 mg PO DAILY 11/08/14 02/09/23 History lisinopriL [Prinivil] 20 mg PO DAILY 11/08/14 02/09/23 History Amoxicillin 2,000 mg PO ONCE PRN 02/09/23 02/09/23 History Ergocalciferol [Vitamin D2 (1250 1,250 mcg PO SA 02/09/23 02/09/23 History Mcg = 53591 Iu)] Exemestane [Aromasin] 25 mg PO DAILY 02/09/23 02/09/23 History Fluocinonide 0.05% [Lidex 0.05% 1 applic TOPICAL BID PRN 02/09/23 02/09/23 History cream] Metoprolol Tartrate [Lopressor] 25 mg PO HS 02/09/23 02/09/23 History Metoprolol Tartrate [Lopressor] 37.5 mg PO DAILY 02/09/23 02/09/23 History Rosuvastatin Calcium 5 mg PO HS 02/09/23 02/09/23 History hydroCHLOROthiazide [Hydrodiuril] 25 mg PO DAILY 02/09/23 02/09/23 History Allergies Allergy/AdvReac Type Severity Reaction Status Date / Time Sulfa (Sulfonamide Allergy Rash/Hives Verified 02/09/23 12:07 Antibiotics) Physical Exam Vitals: Vital Signs Temp Pulse Resp BP Pulse Ox 02/09/23 08:33 97.9 F 107 H 18 103/48 98 Intake and Output 02/08/23 02/09/23 02/09/23 22:59 06:59 14:59 Other: Weight 99.79 kg General appearance: The patient is alert, oriented, appears in no acute distress. HET: Head is normocephalic and atraumatic. Conjunctiva pink. Sclera anicteric. Neck: Supple without lymphadenopathy. Trachea midline. Heart: Regular. Lungs: Equal expansion, normal respiratory effort. Abdomen: Soft, nontender, nondistended with bowel sounds. No guarding or rigidity. Skin: No rashes. No jaundice. Extremities: Normal skin color and turgor. No pedal edema. Neurological: No focal deficits. Alert and oriented x3. Results CBC & Chem 7: 02/09/23 08:40 02/09/23 08:40 Labs: Abnormal Lab Results - Last 24 Hours (Table) 02/09/23 02/09/23 02/09/23 Range/Units 08:40 08:40 08:40 WBC 11.1 H (3.8-10.6) k/uL RBC 2.85 L (3.80-5.40) m/uL Hgb 8.5 L D (11.4-16.0) gm/dL Hct 24.6 L (34.0-46.0) % Neutrophils # 9.3 H (1.3-7.7) k/uL PT 13.4 H (10.0-12.5) sec INR 1.3 H (<1.2) Sodium 136 L (137-145) mmol/L Carbon Dioxide 21 L (22-30) mmol/L BUN 63 H (7-17) mg/dL Creatinine 1.05 H (0.52-1.04) mg/dL Glucose 169 H (74-99) mg/dL Plasma Lactic Acid Nicolás (0.7-2.0) mmol/L Total Protein 6.0 L (6.3-8.2) g/dL 02/09/23 Range/Units 08:40 WBC (3.8-10.6) k/uL RBC (3.80-5.40) m/uL Hgb (11.4-16.0) gm/dL Hct (34.0-46.0) % Neutrophils # (1.3-7.7) k/uL PT (10.0-12.5) sec INR (<1.2) Sodium (137-145) mmol/L Carbon Dioxide (22-30) mmol/L BUN (7-17) mg/dL Creatinine (0.52-1.04) mg/dL Glucose (74-99) mg/dL Plasma Lactic Acid Nicolás 4.7 H* (0.7-2.0) mmol/L Total Protein (6.3-8.2) g/dL Assessment and Plan (1) Anemia Narrative/Plan: 87-year-old female on Cymbalta for atrial fibrillation presented to emergency department with shortness of breath on exertion. She was noted to be anemic with a hemoglobin of 8.5 which was dropped from December where she was at 13. Labs are consistent with a normal chromic normocytic anemia, medicine team has ordered iron studies and anemia workup. Patient denies any signs or symptoms of GI bleed no black stool or bright red blood. She was positive for occult stool. Possible etiologies include upper or lower GI bleed as patient has no obvious symptoms. Consider possible peptic ulcer disease, AVM, gastritis, esophagitis, diverticular bleed or other possibly etiologies. Anemia with elevated BUN likely upper GI bleed especially in setting of dark stool. Plan to proceed with upper endoscopy tomorrow afternoon. Pending those results further recommendations to follow. Current Visit: Yes Status: Acute Code(s): D64.9 - ANEMIA, UNSPECIFIED SNOMED Code(s): 653998093 (2) Positive fecal occult blood test Current Visit: Yes Status: Acute Code(s): R19.5 - OTHER FECAL ABNORMALITIES SNOMED Code(s): 75236739 Plan: 1. Continue symptomatic and supportive care 2. Daily CBC, transfuse for hemoglobin less than 7 3. Protonix 40 mg daily 4. Hold Xarelto 5. Agree with iron studies and anemia workup 6. Patient may have clear liquid diet, nothing by mouth after midnight 7. Plan for EGD tomorrow, further recommendations forthcoming based on findings Thank you for this consultation, we will continue to follow. Dr. Torito Durand I agree with the dictator's note, documented as a scribe by Chrissie Pires.
[2023-02-09] MEDS ORDERED: NALOXONE 0.4 MG/ML 1 ML VIAL IV PRN (14:21)
[2023-02-09] MEDS ORDERED: ONDANSETRON 4 MG/2 ML VIAL IVP PRN (14:21)
[2023-02-09] MEDS ORDERED: ACETAMINOPHEN TAB 325 MG TAB PO PRN (14:21)
[2023-02-09] MEDS ORDERED: MELATONIN 3 MG TABLET PO PRN (14:21)
--- NOTE | 2023-02-09 14:28 | P.HPIM ---
History of Present Illness H&P Date: 02/09/23 Patient is an 79-year-old female with a history of atrial fibrillation anticoagulated with Xarelto, recent breast cancer status post mastectomy in September 2022 surgically induced hypothyroidism who presented to the hospital with complaints of shortness of breath with exertion. On arrival to the ER she was notably tachycardic with a pulse of 107. Initial laboratory analysis including CBC, coags, d-dimer, CMP, lactic acid, troponin, BNP which were remarkable for white blood cell count 11.1, hemoglobin 8.5, sodium 136, BUN 63, creatinine 1.05, lactic acid of 4.7. Fecal occult blood was positive. Influenza A/B/RSV/COVID-19 PCR was negative. Chest x-ray showed findings of COPD but no acute process. Arrangements were made for admission for concerns for GI bleed. GI was consulted. Plans are for EGD on 02/10/23. Patient seen and examined at bedside. Ports after the last several days she has had shortness of breath with exertion that improves with rest. She has also noted more frequent bowel movements that have been dark in color. She denies any bright red blood. She does report intermittent heartburn for which she takes some [place]. She denies any lightheadedness, dizziness, chest pain, or palpitations. She denies any recent cough, cold, fever, flu. She denies taking any NSAIDs. Vital signs reviewed General: nontoxic, no distress, appears at stated age Derm: warm, dry Eyes: EOMI, no lid lag, anicteric sclera, pupils equal round reactive to light ENT: Nose and ears atraumatic, no thrush, no pharyngeal erythema Cardiovascular: S1S2 reg, no murmur, positive posterior tibial pulse bilateral, 1+ nonpitting edema, capillary refill less than 2 seconds Lungs: clear to auscultation bilateral, no rhonchi, no rales, no wheeze, no accessory muscle use Abdominal: soft, nontender to palpation, no guarding, no appreciable organomegaly, normal bowel sounds Ext: no gross muscle atrophy, moving all 4 extremities independently, no contractures Neuro: CN II-XII grossly intact, finger to nose within normal limits, Psych: Alert, oriented, appears upset/anxious Assessment/Plan: Symptomatic anemia Suspect GI bleed Lactic acidosis Recently treated breast cancer on aromatase inhibitor -Case discussed with Dr. Durand and plan will be for EGD tomorrow. If that does not show any active signs of bleeding could then proceed with colonoscopy. -Protonix 40 mg IV push twice daily, okay for clear liquid diet per GI and then nothing by mouth after midnight -Check iron studies, B12, folic acid, and recheck count - hold aromatase inhibitor - hold xarelto -Follow CBC every 6 hours -Transfuse for hemoglobin less than 7 -lactic acid at 75 mL/h A fib HTN Dyslipidemia TKD stage IIIA, creatinine at baseline -Hold Xarelto -Lopressor 37.5 mg in a.m., 25 mg at night -Lisinopril 20 mg daily, Norvasc 10 mg daily -Substitute rosuvastatin for atorvastatin Hypothyroidism -Synthroid 125 g daily Imaging: as per hpi Data Review: as per hpi The patient is admitted with an anticipated greater than 2 midnight stay for evaluation of . Surrogate decision-maker: Daughter CODE STATUS:Full DVT prophylaxis: SCDs Anticipated discharge date: Pending clinical course Anticipated discharge place: Pending clinical course This dictation was prepared using [employer] voice recognition software. Though every attempt is made to correct errors during dictation some may still exist. Past Medical History Past Medical History: Atrial Fibrillation, Cancer, Hyperlipidemia, Hypertension, Osteoarthritis (OA), Thyroid Disorder Additional Past Medical History / Comment(s): BREAST CANCER, History of Any Multi-Drug Resistant Organisms: None Reported Past Surgical History: Hysterectomy, Joint Replacement Additional Past Surgical History / Comment(s): 01-22-15 EP STUDY/CARDIAC A BLATION . THER PAST MEDICAL HX INCLUDES: bilat knee REPLACMENTS, thyroidectomy, and lumpectomy with radiation in 1986 Past Anesthesia/Blood Transfusion Reactions: No Reported Reaction Past Psychological History: No Psychological Hx Reported Smoking Status: Never smoker Past Alcohol Use History: Occasional Past Drug Use History: None Reported - Past Family History Mother Family Medical History: Cancer Father History Unknown: Yes Medications and Allergies Home Medications Medication Instructions Recorded Confirmed Type Levothyroxine Sodium [Synthroid] 125 mcg PO DAILY 11/08/14 02/09/23 History Rivaroxaban [Xarelto] 20 mg PO HS 11/08/14 02/09/23 History amLODIPine [Norvasc] 10 mg PO DAILY 11/08/14 02/09/23 History lisinopriL [Prinivil] 20 mg PO DAILY 11/08/14 02/09/23 History Amoxicillin 2,000 mg PO ONCE PRN 02/09/23 02/09/23 History Ergocalciferol [Vitamin D2 (1250 1,250 mcg PO SA 02/09/23 02/09/23 History Mcg = 40625 Iu)] Exemestane [Aromasin] 25 mg PO DAILY 02/09/23 02/09/23 History Fluocinonide 0.05% [Lidex 0.05% 1 applic TOPICAL BID PRN 02/09/23 02/09/23 History cream] Metoprolol Tartrate [Lopressor] 25 mg PO HS 02/09/23 02/09/23 History Metoprolol Tartrate [Lopressor] 37.5 mg PO DAILY 02/09/23 02/09/23 History Rosuvastatin Calcium 5 mg PO HS 02/09/23 02/09/23 History hydroCHLOROthiazide [Hydrodiuril] 25 mg PO DAILY 02/09/23 02/09/23 History Allergies Allergy/AdvReac Type Severity Reaction Status Date / Time Sulfa (Sulfonamide Allergy Rash/Hives Verified 02/09/23 12:07 Antibiotics) Physical Exam Osteopathic Statement: *. No significant issues noted on an osteopathic structural exam other than those noted in the History and Physical/Consult. Vitals: Vital Signs Temp Pulse Resp BP Pulse Ox 02/09/23 12:46 97 18 98 02/09/23 08:33 97.9 F 107 H 18 103/48 98 Intake and Output 02/08/23 02/09/23 02/09/23 22:59 06:59 14:59 Other: Weight 99.79 kg Results CBC & Chem 7: 02/09/23 08:40 02/09/23 08:40 Labs: Abnormal Lab Results - Last 24 Hours (Table) 02/09/23 02/09/23 02/09/23 Range/Units 08:40 08:40 08:40 WBC 11.1 H (3.8-10.6) k/uL RBC 2.85 L (3.80-5.40) m/uL Hgb 8.5 L D (11.4-16.0) gm/dL Hct 24.6 L (34.0-46.0) % Neutrophils # 9.3 H (1.3-7.7) k/uL PT 13.4 H (10.0-12.5) sec INR 1.3 H (<1.2) Sodium 136 L (137-145) mmol/L Carbon Dioxide 21 L (22-30) mmol/L BUN 63 H (7-17) mg/dL Creatinine 1.05 H (0.52-1.04) mg/dL Glucose 169 H (74-99) mg/dL Plasma Lactic Acid Nicolás (0.7-2.0) mmol/L Total Protein 6.0 L (6.3-8.2) g/dL 02/09/23 02/09/23 Range/Units 08:40 11:25 WBC (3.8-10.6) k/uL RBC (3.80-5.40) m/uL Hgb (11.4-16.0) gm/dL Hct (34.0-46.0) % Neutrophils # (1.3-7.7) k/uL PT (10.0-12.5) sec INR (<1.2) Sodium (137-145) mmol/L Carbon Dioxide (22-30) mmol/L BUN (7-17) mg/dL Creatinine (0.52-1.04) mg/dL Glucose (74-99) mg/dL Plasma Lactic Acid Nicolás 4.7 H* 2.4 H* (0.7-2.0) mmol/L Total Protein (6.3-8.2) g/dL
[2023-02-09 15:21] LABS: Basophils % (A) 0 %; Eosinophils # (A) 0.1 k/uL (0-0.7); Eosinophils % (A) 1 %; HCT 21.4 % (34.0-46.0); HGB 7.4 gm/dL (11.4-16.0); Lymphocytes # (A) 1.1 k/uL (1.0-4.8); Lymphocytes % (A) 12 %; MCHC 34.4 g/dL (31.0-37.0); MCV 87.3 fL (80.0-100.0); Mean Platelet Volume 8.3; Monocytes # (A) 0.6 k/uL (0-1.0); Monocytes % (A) 6 %; Neutrophils # (A) 7.4 k/uL (1.3-7.7); Neutrophils % (A) 80 %; Platelet Count 198 k/uL (150-450); RBC 2.45 m/uL (3.80-5.40); RDW 14.7 % (11.5-15.5); WBC 9.2 k/uL (3.8-10.6)
[2023-02-09 15:55] LABS: % Iron Saturation 15.93 (12.00-45.00); Ferritin 42.4 ng/mL (10.0-291.0); Iron 58 UG/DL (50-170); Total Iron Binding Capacity 364 UG/DL (228-460)
[2023-02-09 16:02] LABS: Vitamin B12 <150.0 pg/mL (200.0-944.0)
[2023-02-09] MEDS: LACTATED RINGERS 1,000 ML IV SCH (17:48)
[2023-02-09 20:53] LABS: Basophils % (A) 0 %; Eosinophils # (A) 0.2 k/uL (0-0.7); Eosinophils % (A) 2 %; HCT 21.8 % (34.0-46.0); HGB 7.5 gm/dL (11.4-16.0); Lymphocytes # (A) 1.4 k/uL (1.0-4.8); Lymphocytes % (A) 14 %; MCH 30.3 pg (25.0-35.0); MCHC 34.6 g/dL (31.0-37.0); MCV 87.7 fL (80.0-100.0); Mean Platelet Volume 8.3; Monocytes # (A) 0.7 k/uL (0-1.0); Monocytes % (A) 6 %; Neutrophils # (A) 7.8 k/uL (1.3-7.7); Neutrophils % (A) 76 %; Platelet Count 207 k/uL (150-450); RBC 2.48 m/uL (3.80-5.40); RDW 14.7 % (11.5-15.5); WBC 10.3 k/uL (3.8-10.6)
[2023-02-09] MEDS: ATORVASTATIN 10 MG TAB PO SCH (21:40)
[2023-02-09] MEDS: METOPROLOL TARTRATE 25 MG TAB PO SCH (22:04)
[2023-02-10] MEDS: LACTATED RINGERS 1,000 ML IV SCH ×2 (03:45→18:51)
[2023-02-10 06:49] LABS: African American GFR (CKD) 76 (>60 ml/min/1.73 sqM); Anion Gap 9 mmol/L; Blood Urea Nitrogen 35 mg/dL (7-17); Calcium 8.7 mg/dL (8.4-10.2); Carbon Dioxide 23 mmol/L (22-30); Chloride 105 mmol/L (98-107); Glucose 109 mg/dL (74-99); Non-African American GFR(CKD) 66 (>60 ml/min/1.73 sqM); Potassium 4.1 mmol/L (3.5-5.1); Sodium 137 mmol/L (137-145)
[2023-02-10 07:04] LABS: HCT 20.1 % (34.0-46.0); MCH 29.8 pg (25.0-35.0); MCHC 33.7 g/dL (31.0-37.0); MCV 88.3 fL (80.0-100.0); Mean Platelet Volume 8.3; Platelet Count 200 k/uL (150-450); RBC 2.27 m/uL (3.80-5.40); RDW 14.8 % (11.5-15.5); WBC 7.1 k/uL (3.8-10.6)
[2023-02-10 07:05] LABS: HGB 6.8 gm/dL (11.4-16.0)
[2023-02-10] MEDS: METOPROLOL TARTRATE 25 MG TAB PO SCH ×2 (08:44→21:33)
[2023-02-10] MEDS: amLODIPine 10 MG TAB PO SCH (08:44)
[2023-02-10] MEDS: lisinopriL 20 MG TAB PO SCH (08:44)
[2023-02-10] MEDS: LEVOTHYROXINE 125 MCG TAB PO SCH (08:44)
[2023-02-10] MEDS: hydroCHLOROthiazide 25 MG TAB PO SCH (08:44)
[2023-02-10] MEDS: PANTOPRAZOLE 40 MG/10 ML VIAL IVP SCH (08:45)
[2023-02-10] MEDS: CYANOCOBALAMIN 1,000 MCG/ML 1 ML VIAL IM SCH (12:02)
[2023-02-10] MEDS ORDERED: PROPOFOL 10 MG/ML 20 ML VIAL IV ONE (13:11)
[2023-02-10] MEDS ORDERED: LIDOCAINE 1% INJ 10MG/ML (20 ML MDV) ONE (13:11)
--- NOTE | 2023-02-10 13:24 | P.PCN ---
Date of Procedure: 02/10/23 Procedure(s) Performed: BRIEF HISTORY: Patient is a 79-year-old, pleasant, white female admitted hospital with severe symptomatic anemia and hemoglobin of 6.8 g/dL and occult stools for the last few days. She of A. fib and is on Xarelto which is currently on hold for 2 days'. PROCEDURE PERFORMED: Esophagogastroduodenoscopy. PREOPERATIVE DIAGNOSIS: Severe symptomatic anemia and dark stool. His duration. IV sedation per anesthesia. PROCEDURE: After informed consent was obtained, the patient was brought into the endoscopy unit. IV sedation was administered by Anesthesia under continuous monitoring. Initially the Olympus GIF-140 video endoscope was inserted into the mouth. Esophagus intubated without any difficulty. It was gradually advanced into the stomach and duodenum and carefully examined. The bulb and the second part of the duodenum appeared normal. The scope at this time was withdrawn to the stomach, adequately insufflated with air, and upon careful examination, mucosa of the antrum, had a 1 cm clean-based ulcer with no active bleeding and biopsies were done from this area. Because of the body, cardia and the fundus appeared normal. The scope was then withdrawn into the esophagus. Small hiatal hernia noted. The GE junction was located at 40 cm from the incisors. There wa s long segment of Danielle's esophagus extending from 33-40 cm from the incisors with smooth-appearing mucosa and multiple biopsies were done from the segment of Danielle's esophagus. The rest of the esophagus appeared normal. There were no erosions or ulcerations seen and the patient tolerated the procedure well. IMPRESSION: 1. 1 cm clean-based antral ulcer with no active bleeding. 2. 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 Small hiatal hernia. RECOMMENDATIONS: The findings of this examination were discussed with the charles cotton as well as a family. She will continue with Protonix 40 mg daily and follow with the biopsy results. Advance diet as tolerated. If hemoglobin remains stable, Xarelto can be resumed tomorrow
[2023-02-10] MEDS ORDERED: IV FLUID CONTINUATION 600 ML IV ONE (13:25)
--- NOTE | 2023-02-10 13:39 | P.PN ---
Subjective Progress Note Date: 02/10/23 (delayed charting seen at 0930) Patient is an 79-year-old female with a history of atrial fibrillation anticoagulated with Xarelto, recent breast cancer status post mastectomy in September 2022 surgically induced hypothyroidism who presented to the hospital with complaints of shortness of breath with exertion. On arrival to the ER she was notably tachycardic with a pulse of 107. Initial laboratory analysis including CBC, coags, d-dimer, CMP, lactic acid, troponin, BNP which were remarkable for white blood cell count 11.1, hemoglobin 8.5, sodium 136, BUN 63, creatinine 1.05, lactic acid of 4.7. Fecal occult blood was positive. Influenza A/B/RSV/COVID-19 PCR was negative. Chest x-ray showed findings of COPD but no acute process. Arrangements were made for admission for concerns for GI bleed. GI was consulted. Her hemoglobin morning of 02/10 came back at 6.8. EGD on 02/10 which showed an antral ulcer with no signs of bleeding and a large area of Danielle's esophagus Patient seen and examined at bedside. He had some dizziness when getting up this morning but that has since resolved. She is still feeling anxious and is worried about coming back with colon cancer. She reports that she has a history of B12 deficiency in the past. She denies any more bowel movements. She denies any chest pain, palpitations, or significant shortness of breath. Vital signs reviewed General: nontoxic, no distress, appears at stated age Cardiovascular: S1S2 reg, no murmur, positive posterior tibial pulse bilateral, Lungs: Decreased breath sounds bilateral, no rhonchi, no rales , no accessory muscle use Abdominal: soft, nontender to palpation, no guarding, no appreciable orga nomegaly Ext: no gross muscle atrophy, no edema b/l lower extremities, no contractures Neuro: CN II-XI grossly intact, no focal neuro deficits Psych: Alert, oriented, appropriate affect Assessment/Plan: GI bleed due to antral ulcer Barretts esophagus Symptomatic anemia Lactic acidosis, resolved Recently treated breast cancer on aromatase inhibitor B12 deficiency -GI recs reviewed. It can resume Xarelto if hemoglobin is stable tomorrow -Continue with Protonix 40 mg IV push once daily - 1 unit pRBC - hold aromatase inhibitor - hold xarelto -Repeat CBC in AM - LR at 75 cc/hr -Vitamin B-12 1000 g daily. Will need outpatient follow-up. A fib HTN Dyslipidemia CKD stage IIIA, creatinine at baseline -Hold Xarelto -Lopressor 37.5 mg in a.m., 25 mg at night -Lisinopril 20 mg daily, Norvasc 10 mg daily -Atorvastatin 10 mg at night Hypothyroidism -Synthroid 125 g daily Imaging: None new Data Review: Labs reviewed from today included CBC and basic metabolic profile remarkable for hemoglobin 6.8 DVT prophylaxis: SCDs Anticipated discharge date: in AM Anticipated discharge place: Home This dictation was prepared using [employer] voice recognition software. Though every attempt is made to correct errors during dictation some may still exist. Objective - Vital Signs Vital signs: Vital Signs Temp 97.9 F 02/10/23 12:55 Pulse 54 L 02/10/23 12:55 Resp 16 02/10/23 12:55 BP 113/54 02/10/23 12:55 Pulse Ox 99 02/10/23 11:30 FiO2 Intake & Output 02/09/23 02/10/23 02/10/23 18:59 06:59 18:59 Intake Total 690 480 Balance 690 480 Weight 99.79 kg Intake: IV 200 Oral 690 Blood Product 280 Rc Pheresis As-3 Unit 280 [id number] Other: Voiding Method Toilet Toilet # Voids 1 1 - Labs CBC & Chem 7: 02/10/23 05:36 02/10/23 05:36 Labs: Abnormal Lab Results - Last 24 Hours (Table) 02/09/23 02/09/23 02/09/23 Range/Units 08:40 08:40 08:40 RBC (3.80-5.40) m/uL Hgb (11.4-16.0) gm/dL Hct (34.0-46.0) % Neutrophils # (1.3-7.7) k/uL Retic Count 4.0 H (0.5-2.0) % BUN (7-17) mg/dL Glucose (74-99) mg/dL Plasma Lactic Acid Nicolás (0.7-2.0) mmol/L Vitamin B12 <150.0 L (200.0-944.0) pg/mL RBC Folate 936 H (280 - 791) ng/mL Crossmatch 02/09/23 02/09/2302/09/23 Range/Units 10:18 14:58 14:58 RBC 2.45 L (3.80-5.40) m/uL Hgb 7.4 L (11.4-16.0) gm/dL Hct 21.4 L (34.0-46.0) % Neutrophils # (1.3-7.7) k/uL Retic Count (0.5-2.0) % BUN (7-17) mg/dL Glucose (74-99) mg/dL Plasma Lactic Acid Incolás 2.2 H* (0.7-2.0) mmol/L Vitamin B12 (200.0-944.0) pg/mL RBC Folate (280 - 791) ng/mL Crossmatch See Detail 02/09/23 02/09/23 02/10/23 Range/Units 17:45 20:41 05:36 RBC 2.48 L 2.27 L (3.80-5.40) m/uL Hgb 7.5 L 6.8 L* (11.4-16.0) gm/dL Hct 21.8 L 20.1 L (34.0-46.0) % Neutrophils # 7.8 H (1.3-7.7) k/uL Retic Count (0.5-2.0) % BUN (7-17) mg/dL Glucose (74-99) mg/dL Plasma Lactic Acid Nicolás 3.8 H* (0.7-2.0) mmol/L Vitamin B12 (200.0-944.0) pg/mL RBC Folate (280 - 791) ng/mL Crossmatch 02/10/23 Range/Units 05:36 RBC (3.80-5.40) m/uL Hgb (11.4-16.0) gm/dL Hct (34.0-46.0) % Neutrophils # (1.3-7.7) k/uL Retic Count (0.5-2.0) % BUN 35 H (7-17) mg/dL Glucose 109 H (74-99) mg/dL Plasma Lactic Acid Nicolás (0.7-2.0) mmol/L Vitamin B12 (200.0-944.0) pg/mL RBC Folate (280 - 791) ng/mL Crossmatch
[2023-02-10 18:39] LABS: HCT 22.8 % (34.0-46.0); HGB 7.9 gm/dL (11.4-16.0); MCHC 34.7 g/dL (31.0-37.0); MCV 89.2 fL (80.0-100.0); Mean Platelet Volume 8.1; Platelet Count 197 k/uL (150-450); RBC 2.56 m/uL (3.80-5.40); RDW 14.8 % (11.5-15.5)
[2023-02-10 19:54] VITALS: PULSE 63; RESP 20
[2023-02-10] MEDS: ATORVASTATIN 10 MG TAB PO SCH (21:33)
[2023-02-10 23:35] VITALS: TEMP 96.3
[2023-02-11] MEDS: LACTATED RINGERS 1,000 ML IV SCH (06:02)
[2023-02-11 07:42] LABS: HCT 24.7 % (34.0-46.0); HGB 8.4 gm/dL (11.4-16.0); MCH 30.4 pg (25.0-35.0); MCV 89.2 fL (80.0-100.0); Mean Platelet Volume 8.1; Platelet Count 200 k/uL (150-450); RBC 2.77 m/uL (3.80-5.40); RDW 15.1 % (11.5-15.5)
[2023-02-11] MEDS: lisinopriL 20 MG TAB PO SCH (08:16)
[2023-02-11] MEDS: METOPROLOL TARTRATE 25 MG TAB PO SCH (08:16)
[2023-02-11] MEDS: amLODIPine 10 MG TAB PO SCH (08:16)
[2023-02-11] MEDS: LEVOTHYROXINE 125 MCG TAB PO SCH (08:17)
[2023-02-11] MEDS: hydroCHLOROthiazide 25 MG TAB PO SCH (08:17)
[2023-02-11] MEDS: PANTOPRAZOLE 40 MG/10 ML VIAL IVP SCH (08:17)
[2023-02-11] MEDS: CYANOCOBALAMIN 1,000 MCG/ML 1 ML VIAL IM SCH (08:17)
[2023-02-11 08:55] VITALS: BP 111/57
--- NOTE | 2023-02-11 09:41 | P.PN ---
Subjective Progress Note Date: 02/11/23 Principal diagnosis: GI bleed, anemia This is an 87-year-old female who presented to the emergency department with complaints of shortness of breath with exertion. She has a past medical history including atrial fibrillation on Xarelto last taken yesterday, breast cancer, arthritis, and thyroid disorder. Patient denies any other symptoms other than shortness of breath when she is up at next started which have resolved when she sits down. She denies any abdominal pain epigastric pain, nausea, vomiting, bright red stools or black stools. She denies any recent symptoms such as cough, fever, body aches or chills. Admitting labs WBC 11.1 and hemoglobin 8.5 hematocrit 24 platelet count 220,000, INR 1.3 sodium 136 potassium 3.8 BUN 63 creatinine 1.05 lactic acid 4.7 total bilirubin 0.4 AST 22 ALT 19 alkaline phosphatase 86. Reviewing patient's prior lab studies patient's hemoglobin on 12/31/2022 was 13.3. No Previous history of anemia. Colonoscopy about 25-30 years ago. Does not believe she had previous EGD. She does complain of acid reflux and indigestion and uses [place] as needed. Denies any NSAID use. 02/19/2023 Patient seen and examined today as a follow-up. 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 Patient has not had any bleeding throughout the night. Hemoglobin is stable at 8.4. Denies any abdominal pain, epigastric pain, nausea or vomiting. She tolerated her regular diet. Objective - Vital Signs Vital signs: Vital Signs Temp 96.3 F L 02/11/23 03:33 Pulse 63 02/11/23 08:13 Resp 20 02/11/23 08:14 BP 111/57 02/11/23 08:13 Pulse Ox 98 02/11/23 08:13 FiO2 Intake & Output 02/10/23 02/11/23 02/11/23 18:59 06:59 18:59 Intake Total 600 Balance 600 Intake: IV 200 Oral 120 Blood Product 280 Rc Pheresis As-3 Unit 280 [id number] Other: Voiding Method Toilet Toilet # Voids 3 2 - Exam General appearance: The patient is alert, oriented, appears in no acute distress. HET: Head is normocephalic and atraumatic. Conjunctiva pink. Sclera anicteric. Neck: Supple without lymphadenopathy. Abdomen: Soft, nontender, nondistended with bowel sounds. No guarding or rigidity. Extremities: Normal skin color and turgor. No pedal edema Skin: No rashes, no jaundice Neurological: No focal deficits. Alert and oriented. - Labs CBC & Chem 7: 02/11/23 07:22 02/10/23 05:36 Labs: Abnormal Lab Results - Last 24 Hours (Table) 02/09/23 02/09/23 02/10/23 Range/Units 08:40 10:18 18:11 RBC 2.56 L (3.80-5.40) m/uL Hgb 7.9 L (11.4-16.0) gm/dL Hct 22.8 L (34.0-46.0) % RBC Folate 936 H (280 - 791) ng/mL Crossmatch See Detail 02/11/23 Range/Units 07:22 RBC 2.77 L (3.80-5.40) m/uL Hgb 8.4 L (11.4-16.0) gm/dL Hct 24.7 L (34.0-46.0) % RBC Folate (280 - 791) ng/mL Crossmatch Assessment and Plan (1) Anemia Narrative/Plan: 87-year-old female on Cymbalta for atrial fibrillation presented to emergency department with shortness of breath on exertion. She was noted to be anemic with a hemoglobin of 8.5 which was dropped from December where she was at 13. Labs are consistent with a normal chromic normocytic anemia, medicine team has ordered iron studies and anemia workup. Patient denies any signs or symptoms of GI bleed no black stool or bright red blood. She was positive for occult stool. Possible etiologies include upper or lower GI bleed as patient has no obvious symptoms. Consider possible peptic ulcer disease, AVM, gastritis, esophagitis, diverticular bleed or other possibly etiologies. Anemia with elevated BUN likely upper GI bleed especially in setting of dark stool. Plan to proceed with upper endoscopy tomorrow afternoon. Pending those results further recommendations to follow. Patient is status post EGD with findings of clean-based antral ulcer no active bleeding long segment of Danielle's esophagus and a small hiatal hernia. No further bleeding noted. Hemoglobin stable 8.4 after 1 unit of blood yesterday. Plan to resume anticoagulation and discharge home with follow-up for biopsy results Current Visit: Yes Status: Acute Code(s): D64.9 - ANEMIA, UNSPECIFIED SNOM ED Code(s): 372060618 (2) Positive fecal occult blood test Current Visit: Yes Status: Acute Code(s): R19.5 - OTHER FECAL ABNORMALITIES SNOMED Code(s): 59497321 Plan: 1. Continue symptomatic and supportive care 2. Regular diet 3. Protonix 40 mg daily 4. Patient is status post EGD 5. May resume Xarelto 6. Patient is cleared from gastroenterology for discharge. Follow-up in 2-3 weeks for biopsy results Thank you for this consultation. Dr. Torito Durand I agree with the dictator's note, documented as a scribe by Chrissie Pires.
--- NOTE | 2023-02-11 14:31 | P.PN ---
Subjective Progress Note Date: 02/11/23 Discharge Diagnosis: GI bleed due to antral ulcer Barretts esophagus Symptomatic acute blood loss anemia Lactic acidosis, resolved Recently treated breast cancer on aromatase inhibitor B12 deficiency A fib HTN Dyslipidemia CKD stage IIIA, creatinine at baseline Hypothyroidism Hospital Course: Patient is an 79-year-old female with a history of atrial fibrillation anticoagulated with Xarelto, recent breast cancer status post mastectomy in September 2022 surgically induced hypothyroidism who presented to the hospital with complaints of shortness of breath with exertion. On arrival to the ER she was notably tachycardic with a pulse of 107. Initial laboratory analysis including CBC, coags, d-dimer, CMP, lactic acid, troponin, BNP which were remarkable for white blood cell count 11.1, hemoglobin 8.5, sodium 136, BUN 63, creatinine 1.05, lactic acid of 4.7. Fecal occult blood was positive. Influenza A/B/RSV/COVID-19 PCR was negative. Chest x-ray showed findings of COPD but no acute process. Arrangements were made for admission for concerns for GI bleed. GI was consulted. Her hemoglobin morning of 02/10 came back at 6.8. EGD on 02/10 which showed an antral ulcer with no signs of bleeding and a large area of Danielle's esophagus. Anemia studies demonstrated severe B12 deficiency. She was given 2 doses of IM B12. Her hemoglobin stabilized. She was tolerating a diet. She was determined stable for discharge. Follow-up: Protonix 40 mg twice daily is the only medication change. She'll see Dr. Rizo in 2 weeks for follow-up. She also follow with Dr. Vera. She likely will need B12 injections going forward. Patient is aware and will follow with both her oncologist and regarding this. She did receive 2 doses of IM B12. We discussed the option of sublingual B12 however she prefers to not take any more medications oral. Patient seen and examined at bedside. Doing well. No chest pain, shortness breath, lightheaded, or dizziness. Mild lower extremity edema Vital signs reviewed and stable. General: nontoxic, no distress, appears at stated age Cardiovascular: S1S2 reg, no murmur, positive posterior tibial pulse bilateral, Lungs: CTA bilateral, no rhonchi, no rales , no accessory muscle use Abdominal: soft, nontender to palpation, no guarding, no appreciable org anomegaly Ext: no gross muscle atrophy, trace edema b/l lower extremities, no contractures Neuro: CN II-XI grossly intact, no focal neuro deficits Psych: Alert, oriented, appropriate affect A total of 37 minutes of time were spent preparing this complex discharge summary. Patient was discharged on 02/11/23. This dictation was prepared using [employer] voice recognition software. Though every attempt is made to correct errors during dictation some may still exist. Objective - Vital Signs Vital signs: Vital Signs Temp 96.3 F L 02/11/23 03:33 Pulse 63 02/11/23 08:13 Resp 20 02/11/23 08:14 BP 111/57 02/11/23 08:13 Pulse Ox 98 02/11/23 08:13 FiO2 Intake & Output 02/10/23 02/11/23 02/11/23 18:59 06:59 18:59 Intake Total 600 Balance 600 Intake: IV 200 Oral 120 Blood Product 280 Rc Pheresis As-3 Unit 280 [id number] Other: Voiding Method Toilet Toilet # Voids 3 2 - Labs CBC & Chem 7: 02/11/23 07:22 02/10/23 05:36 Labs: Abnormal Lab Results - Last 24 Hours (Table) 02/10/23 02/11/23 Range/Units 18:11 07:22 RBC 2.56 L 2.77 L (3.80-5.40) m/uL Hgb 7.9 L 8.4 L (11.4-16.0) gm/dL Hct 22.8 L 24.7 L (34.0-46.0) %
== END 2023-02-11 10:10 | disposition home or self-care (01) | DRG 378 ==
LOC: EC 08:31 → 4SSUR 10:47 → 5NMEDONC 12:37 → 3SCARD 14:07
PROVIDERS: ADMIT Internal Medicine; ATTEND Internal Medicine
PROC: 0DB58ZX Excision of Esophagus, Via Natural or Artificial Opening Endoscopic, Diagnostic (ICD-10-PCS; principal; 2023-02-09)
PROC: 0DB78ZX Excision of Stomach, Pylorus, Via Natural or Artificial Opening Endoscopic, Diagnostic (ICD-10-PCS; 2023-02-09)
DX: K25.4 Chronic or unspecified gastric ulcer with hemorrhage (principal); E87.20 Acidosis, unspecified; C50.919 Malignant neoplasm of unspecified site of unspecified female breast; D64.9 Anemia, unspecified; K22.70 Barrett's esophagus without dysplasia; I12.9 Hypertensive chronic kidney disease with stage 1 through stage 4 chronic kidney disease, or unspecified chronic kidney disease; M19.90 Unspecified osteoarthritis, unspecified site; N18.31 Chronic kidney disease, stage 3a; E53.8 Deficiency of other specified B group vitamins; I48.91 Unspecified atrial fibrillation; E78.5 Hyperlipidemia, unspecified; E89.0 Postprocedural hypothyroidism; Z88.2 Allergy status to sulfonamides; Z20.822 Contact with and (suspected) exposure to COVID-19; Z96.653 Presence of artificial knee joint, bilateral
CPT/HCPCS: 36415; 43239; 71046; 80048; 80053; 82272; 82607; 82728; 82747; 83540; 83550; 83605; 83735; 83880; 84484; 85025; 85027; 85045; 85379; 85610; 85730; 86850; 86900; 86901; 86920; 87636; 88305; 88342; 93005; 96360; 96361; 99285

== ENCOUNTER 2023-06-21 11:18 | Inpatient (IN) | payer MEDICARE ==
--- NOTE | 2023-06-21 12:10 | ED ---
General Adult HPI - General Chief complaint: Shortness of Breath Stated complaint: SOB Time Seen by Provider: 06/21/23 11:41 Source: patient, RN notes reviewed Mode of arrival: wheelchair Limitations: no limitations - History of Present Illness Initial comments: Patient is a 88-year-old female present to the emergency department with concerns with difficulty in breathing. Onset of symptoms was just 2 days ago. Patient did have her metoprolol increased and diuretic discontinued around a week ago. Patient has noticed some leg edema. Patient does have dyspnea that is worse with exertion as well as orthopnea. No chest pain. No fever. No congestion or cough. - Related Data Home Medications Medication Instructions Recorded Confirmed Levothyroxine Sodium [Synthroid] 125 mcg PO DAILY 11/08/14 06/21/23 Rivaroxaban [Xarelto] 20 mg PO HS 11/08/14 06/21/23 lisinopriL [Prinivil] 20 mg PO DAILY 11/08/14 06/21/23 Ergocalciferol [Vitamin D2 (1250 1,250 mcg PO SA 02/09/23 06/21/23 Mcg = 73223 Iu)] Rosuvastatin Calcium 5 mg PO HS 02/09/23 06/21/23 Aspirin EC [Ecotrin Low Dose] 81 mg PO MOWEFR 06/21/23 06/21/23 Metoprolol Tartrate [Lopressor] 25 mg PO HS 06/21/23 06/21/23 Metoprolol Tartrate [Lopressor] 75 mg PO DAILY 06/21/23 06/21/23 Pantoprazole [Protonix] 40 mg PO DAILY 06/21/23 06/21/23 Allergies Allergy/AdvReac Type Severity Reaction Status Date / Time Sulfa (Sulfonamide Allergy Rash/Hives Verified 06/21/23 14:08 Antibiotics) Review of Systems ROS Statement: Those systems with pertinent positive or pertinent negative responses have been documented in the HPI. ROS Other: All systems not noted in ROS Statement are negative. Constitutional: Denies: fever Eyes: Denies: eye pain ENT: Denies: ear pain Respiratory: Reports: as per HPI, dyspnea. Denies: cough Cardiovascular: Reports: dyspnea on exertion, orthopnea, edema. Denies: chest pain Gastrointestinal: Denies: abdominal pain Musculoskeletal: Denies: back pain Past Medical History Past Medical History: Atrial Fibrillation, Cancer, Hyperlipidemia, Hypertension, Osteoarthritis (OA), Thyroid Disorder Additional Past Medical History / Comment(s): BREAST CANCER, History of Any Multi-Drug Resistant Organisms: None Reported Past Surgical History: Hysterectomy, Joint Replacement Additional Past Surgical History / Comment(s): 01-22-15 EP STUDY/CARDIAC ABLATION . THER PAST MEDICAL HX INCLUDES: bilat knee REPLACMENTS, thyroidectomy, and lumpectomy with radiation in 1986, Heart cath with cardiac stent. October 07. 2022 left mastectomy, Apr 18, 2022 right total shoulder, February 08 2022 cyst removal from inner nose. Past Anesthesia/Blood Transfusion Reactions: No Reported Reaction Past Psychological History: No Psychological Hx Reported Smoking Status: Never smoker Past Alcohol Use History: Occasional Past Drug Use History: None Reported - Past Family History Mother Family Medical History: Cancer Father History Unknown: Yes General Exam Limitations: no limitations General appearance: alert, in no apparent distress Head exam: Present: normocephalic Eye exam: Present: normal appearance Neck exam: Present: normal inspection Respiratory exam: Present: normal lung sounds bilaterally Cardiovascular Exam: Present: regular rate, normal rhythm GI/Abdominal exam: Present: soft. Absent: tenderness Extremities exam: Present: pedal edema. Absent: calf tenderness Neurological exam: Present: alert Psychiatric exam: Present: normal affect, normal mood Skin exam: Present: normal color Course Vital Signs 06/21/23 06/21/23 11:26 14:06 Temperature 98.1 F Pulse Rate 75 54 L Respiratory 18 20 Rate Blood Pressure 176/67 142/73 O2 Sat by Pulse 99 95 Oximetry EKG Findings - EKG Results: EKG: interpreted by ERMD (PVCs present. Nonspecific T waves.), sinus rhythm, normal axis Medical Decision Making - Medical Decision Making Was pt. sent in by a medical professional or institution (, PA, PAPER COATER, urgent care, hospital, or residential...) When possible be specific @ -No Did you speak to anyone other than the patient for history (EMS, parent, family, police, friend...)? What history was obtained from this source @ -Family is present helps provide history including onset. Did you review nursing and triage notes (agree or disagree)? Why? @ -I reviewed and agree with nursing and triage notes Were old charts reviewed (outside hosp., previous admission, EMS record, old EKG, old radiological studies, urgent care reports/EKG's, residential records)? Report findings @ -No old charts were reviewed Differential Diagnosis (chest pain, altered mental status, abdominal pain women, abdominal pain men, vaginal bleeding, weakness, fever, dyspnea, syncope, headache, dizziness, GI bleed, back pain, seizure, CVA, palpatations, mental health, musculoskeletal)? @ -Differential Dyspnea: Coronary syndrome, arrhythmia, tamponade, asthma, COPD, pulmonary embolism, pneumonia, pneumothorax, pulmonary effusion, anaphylaxis, diabetic ketoacidosis, flailed chest, pulmonary contusion, diaphragmatic rupture, anemia, neuromuscular, this is not meant to be an all-inclusive list. EKG interpreted by me (3pts min.). @ -As above X-rays interpreted by me (1pt min.). @ -Chest x-ray shows increased interstitial markings and bilateral effusions consistent with CHF CT interpreted by me (1pt min.). @ -None done U/S interpreted by me (1pt. min.). @ -None done What testing was considered but not performed or refused? (CT, X-rays, U/S, labs)? Why? @ -None What meds were considered but not given or refused? Why? @ -None Did you discuss the management of the patient with other professionals (professionals i.e. , PA, PAPER COATER, lab, RT, psych nurse, social science instructor, ultrasonic solderer, te acher, commercial account officer, leather case finisher)? Give summary @ -Case was discussed with Dr. Hughes who will admit covering Dr. Roberts he Was smoking cessation discussed for >3mins.? @ -No Was critical care preformed (if so, how long)? @ -No Were there social determinants of health that impacted care today? How? (Homelessness, low income, unemployed, alcoholism, drug addiction, transportation, low edu. Level, literacy, decrease access to med. care, fdc, rehab)? @ -No Was there de-escalation of care discussed even if they declined (Discuss DNR or withdrawal of care, Hospice)? DNR status @ -No What co-morbidities impacted this encounter? (DM, HTN, Smoking, COPD, CAD, Cancer, CVA, ARF, Chemo, Hep., AIDS, mental health diagnosis, sleep apnea, morbid obesity)? @ -None Was patient admitted / discharged? Hospital course, mention meds given and route, prescriptions, significant lab abnormalities, going to OR and other pertinent info. @ -Patient reevaluated and unchanged. Patient and family updated on results and plan. Patient will be admitted with cardiac consult and echo. Admission orders written. Undiagnosed new problem with uncertain prognosis? @ -No Drug Therapy requiring intensive monitoring for toxicity (Heparin, Nitro, Insulin, Cardizem)? @ -No Were any procedures done? @ -No Diagnosis/symptom? @ -CHF, new onset Acute, or Chronic, or Acute on Chronic? @ -Acute Uncomplicated (without systemic symptoms) or Complicated (systemic symptoms)? @ -Default Side effects of treatment? @ -No Exacerbation, Progression, or Severe Exacerbation? @ -No Poses a threat to life or bodily function? How? (Chest pain, USA, PA, pneumonia, PE, COPD, DKA, ARF, appy, cholecystitis, CVA, Diverticulitis, Homicidal, Suicidal, threat to staff... and all critical care pts) @ -No - Lab Data Result diagrams: 06/21/23 12:43 Lab Results 06/21/23 06/21/23 06/21/23 Range/Units 12:43 12:43 12:43 WBC 12.2 H (3.8-10.6) k/uL RBC 4.08 (3.80-5.40) m/uL Hgb 9.2 L (11.4-16.0) gm/dL Hct 29.3 L (34.0-46.0) % MCV 71.8 L (80.0-100.0) fL MCH 22.5 L (25.0-35.0) pg MCHC 31.3 (31.0-37.0) g/dL RDW 17.3 H (11.5-15.5) % Plt Count 250 (150-450) k/uL MPV 8.8 Neutrophils % 85 % Lymphocytes % 6 % Monocytes % 7 % Eosinophils % 2 % Basophils % 0 % Neutrophils # 10.4 H (1.3-7.7) k/uL Lymphocytes # 0.7 L (1.0-4.8) k/uL Monocytes # 0.8 (0-1.0) k/uL Eosinophils # 0.2 (0-0.7) k/uL Basophils # 0.0 (0-0.2) k/uL Hypochromasia Marked Poikilocytosis Slight Anisocytosis Slight Microcytosis Moderate PT 13.0 H (10.0-12.5) sec INR 1.2 H (<1.2) APTT 27.3 (22.0-30.0) sec Plasma Lactic Acid Nicolás (0.7-2.0) mmol/L Troponin I (0.000-0.034) ng/mL NT-Pro-B Natriuret Pep 4200 pg/mL 06/21/23 06/21/23 Range/Units 12:43 12:43 WBC (3.8-10.6) k/uL RBC (3.80-5.40) m/uL Hgb (11.4-16.0) gm/dL Hct (34.0-46.0) % MCV (80.0-100.0) fL MCH (25.0-35.0) pg MCHC (31.0-37.0) g/dL RDW (11.5-15.5) % Plt Count (150-450) k/uL MPV Neutrophils % % Lymphocytes % % Monocytes % % Eosinophils % % Basophils % % Neutrophils # (1.3-7.7) k/uL Lymphocytes # (1.0-4.8) k/uL Monocytes # (0-1.0) k/uL Eosinophils # (0-0.7) k/uL Basophils # (0-0.2) k/uL Hypochromasia Poikilocytosis Anisocytosis Microcytosis PT (10.0-12.5) sec INR (<1.2) APTT (22.0-30.0) sec Plasma Lactic Acid Nicolás 1.7 (0.7-2.0) mmol/L Troponin I 0.018 (0.000-0.034) ng/mL NT-Pro-B Natriuret Pep pg/mL Disposition Clinical Impression: Congestive heart failure Disposition: ADMITTED IP TO THIS HOSP Is patient prescribed a controlled substance at d/c from ED?: No Referrals: Lashae Gunn MD [Primary Care Provider] - 1-2 days Time of Disposition: 14:25
[2023-06-21 13:03] LABS: Anisocytosis Slight; Basophils % (A) 0 %; Eosinophils # (A) 0.2 k/uL (0-0.7); Eosinophils % (A) 2 %; HCT 29.3 % (34.0-46.0); HGB 9.2 gm/dL (11.4-16.0); Hypochromasia Marked; Lymphocytes # (A) 0.7 k/uL (1.0-4.8); Lymphocytes % (A) 6 %; MCH 22.5 pg (25.0-35.0); MCHC 31.3 g/dL (31.0-37.0); MCV 71.8 fL (80.0-100.0); Mean Platelet Volume 8.8; Microcytosis Moderate; Monocytes # (A) 0.8 k/uL (0-1.0); Monocytes % (A) 7 %; Neutrophils # (A) 10.4 k/uL (1.3-7.7); Neutrophils % (A) 85 %; Platelet Count 250 k/uL (150-450); Poikilocytosis Slight; RBC 4.08 m/uL (3.80-5.40); RDW 17.3 % (11.5-15.5); WBC 12.2 k/uL (3.8-10.6)
[2023-06-21 13:16] LABS: INR 1.2 (<1.2); Partial Thromboplastin Time 27.3 sec (22.0-30.0)
--- NOTE | 2023-06-21 13:34 | XR ---
EXAMINATION TYPE: XR chest 2V DATE OF EXAM: 06/21/2023 1:00 PM CLINICAL INDICATION:Female, 88 years old with history of difficulty breathing; [facility] COMPARISON: Chest radiographs from 02/09/2023 TECHNIQUE: XR chest 2V Frontal and lateral views of the chest. FINDINGS: Lungs/Pleura: No evidence of focal consolidation or pneumothorax. Blunting of the costophrenic angles is present. Pulmonary vascularity: Pulmonary vascular congestion. Heart/mediastinum: Cardiomediastinal silhouette is enlarged and stable. Atherosclerotic calcificatio ns are seen in the aorta. Musculoskeletal: No acute osseous pathology. Right shoulder arthroplasty appears intact. IMPRESSION: Cardiomegaly, pulmonary vascular congestion and bilateral pleural effusions. Correlate with BNP for c ongestive heart failure.
[2023-06-21 13:55] LABS: NT-Pro-B-Type Natriuretic Pept 4200 pg/mL
[2023-06-21] MEDS: FUROSEMIDE 10 MG/ML 4 ML VIAL IV STA (14:16)
[2023-06-21 14:33] LABS: ALT 19 U/L (4-34); AST 25 U/L (14-36); African American GFR (CKD) >90 (>60 ml/min/1.73 sqM); Albumin 3.7 g/dL (3.5-5.0); Alkaline Phosphatase 134 U/L (38-126); Anion Gap 12 mmol/L; Blood Urea Nitrogen 17 mg/dL (7-17); Carbon Dioxide 19 mmol/L (22-30); Chloride 108 mmol/L (98-107); Glucose 113 mg/dL (74-99); Magnesium 1.9 mg/dL (1.6-2.3); Non-African American GFR(CKD) 78 (>60 ml/min/1.73 sqM); Potassium 4.2 mmol/L (3.5-5.1); Sodium 139 mmol/L (137-145); Total Bilirubin 0.9 mg/dL (0.2-1.3); Total Protein 6.2 g/dL (6.3-8.2)
[2023-06-21] MEDS: ASPIRIN 325 MG TAB PO STA (16:04)
[2023-06-21] MEDS: NITROGLYCERIN OINT 1 INCH/GM PACKET TOPICAL SCH (16:04)
--- NOTE | 2023-06-21 16:42 | P.HPIM ---
History of Present Illness H&P Date: 06/21/23 Patient is a 88-year-old female with history of hypertension, dyslipidemia, hypothyroidism, atrial fibrillation on Xarelto, recent breast cancer status postmastectomy presenting with shortness of breath. She claims that her shortness of breath with exertion has been present for few weeks however this morning she woke up with difficulty breathing, and decided to come to the hospital. She denies any chest pain, palpitations, lightheadedness, abdominal pain, fevers, chills, urinary or bowel complaints. She does complain of some lower extremity swelling. She claims that she saw firesetter few weeks ago, and had medication changes and after that she started feeling more difficulty breathing. She denies any sick contacts or recent travel history. In the ED, temperature was 98.1, pulse 75, respiratory rate 18, blood pressure 176/67 down trended to 142/73, saturating at 99% on room air. WBC 12.2, hemoglobin 9.2 at baseline, potassium 4.2, bicarb 19, creatinine 0.67, glucose 1 13, lactate 1.7, troponin negative, proBNP 4200. Chest x-ray independently interpreted, shows interstitial opacities. EKG independently interpreted, shows sinus rhythm with occasional PVCs. Patient started on IV Lasix, admitted for CHF exacerbation. Cardiology consulted. Pertinent positives and negatives as discussed in HPI, a complete review of systems was performed and all other systems are negative. Patient seen and examined at bedside. Vital signs reviewed General: nontoxic, no distress, appears at stated age Derm: warm, dry Head: atraumatic, normocephalic, symmetric Eyes: EOMI, no lid lag, anicteric sclera, pupils equal round reactive to light ENT: Nose and ears atraumatic Neck: No thyromegaly, supple Mouth: no lip lesion, mucus membranes moist Cardiovascular: S1S2 reg, no murmur, no edema Lungs: Bibasilar rales, no wheeze, no accessory muscle use Abdominal: soft, nontender to palpation, no guarding, no appreciable organomegaly Ext: no gross muscle atrophy, muscle strength muscle strength 5 out of 5 in all 4 extremities, no contractures Neuro: CN II-XII grossly intact Psych: Alert, oriented, appropriate affect Assessment/Plan: Active: Acute CHF exacerbation, unknown EF On IV Lasix 40 every 8 hours, monitor electrolytes Intake and output, daily weights Cardiac monitoring Trend Troponin Echocardiogram pending Cardiology consulted, pending recommendations Chronic: Paroxysmal atrial fibrillation Hypertension Hypothyroidism Dyslipidemia The patient is admitted with an anticipated less than 2 midnight stay as observation status for evaluation of CHF exacerbation. Surrogate decision-maker: Bang CODE STATUS: Full code DVT prophylaxis: Xarelto Anticipated discharge date: Pending clinical course Anticipated discharge place: Pending clinical course A total of 55 minutes was spent on the care of this complex patient more than 50% of the time was spent in counseling and care coordination. Past Medical History Past Medical History: Atrial Fibrillation, Cancer, Hyperlipidemia, Hypertension, Osteoarthritis (OA), Thyroid Disorder Additional Past Medical History / Comment(s): BREAST CANCER, History of Any Multi-Drug Resistant Organisms: None Reported Past Surgical History: Hysterectomy, Joint Replacement Additional Past Surgical History / Comment(s): 01-22-15 EP STUDY/CARDIAC ABLATION . THER PAST MEDICAL HX INCLUDES: bilat knee REPLACMENTS, thyroidectomy, and lumpectomy with radiation in 1986, Heart cath with cardiac stent. October 07. 2022 left mastectomy, Apr 18, 2022 right total shoulder, February 08 2022 cyst removal from inner nose. Past Anesthesia/Blood Transfusion Reactions: No Reported Reaction Past Psychological History: No Psychological Hx Reported Smoking Status: Never smoker Past Alcohol Use History: Occasional Past Drug Use History: None Reported - Past Family History Mother Family Medical History: Cancer Father History Unknown: Yes Medications and Allergies Home Medications Medication Instructions Recorded Confirmed Type Levothyroxine Sodium [Synthroid] 125 mcg PO DAILY 11/08/14 06/21/23 History Rivaroxaban [Xarelto] 20 mg PO HS 11/08/14 06/21/23 History lisinopriL [Prinivil] 20 mg PO DAILY 11/08/14 06/21/23 History Ergocalciferol [Vitamin D2 (1250 1,250 mcg PO SA 02/09/23 06/21/23 History Mcg = 75735 Iu)] Rosuvastatin Calcium 5 mg PO HS 02/09/23 06/21/23 History Aspirin EC [Ecotrin Low Dose] 81 mg PO MOWEFR 06/21/23 06/21/23 History Metoprolol Tartrate [Lopressor] 25 mg PO HS 06/21/23 06/21/23 History Metoprolol Tartrate [Lopressor] 75 mg PO DAILY 06/21/23 06/21/23 History Pantoprazole [Protonix] 40 mg PO DAILY 06/21/23 06/21/23 History Allergies Allergy/AdvReac Type Severity Reaction Status Date / Time Sulfa (Sulfonamide Allergy Rash/Hives Verified 06/21/23 14:08 Antibiotics) Physical Exam Vitals: Vital Signs Temp Pulse Resp BP Pulse Ox 06/21/23 14:06 54 L 20 142/73 95 06/21/23 11:26 98.1 F 75 18 176/67 99 Intake and Output 06/21/23 06/21/23 06/21/23 06:59 14:59 22:59 Other: Weight 99.79 kg Results CBC & Chem 7: 06/21/23 12:43 06/21/23 12:43 Labs: Abnormal Lab Results - Last 24 Hours (Table) 06/21/23 06/21/23 06/21/23 Range/Units 12:43 12:43 12:43 WBC 12.2 H (3.8-10.6) k/uL Hgb 9.2 L (11.4-16.0) gm/dL Hct 29.3 L (34.0-46.0) % MCV 71.8 L (80.0-100.0) fL MCH 22.5 L (25.0-35.0) pg RDW 17.3 H (11.5-15.5) % Neutrophils # 10.4 H (1.3-7.7) k/uL Lymphocytes # 0.7 L (1.0-4.8) k/uL PT 13.0 H (10.0-12.5) sec INR 1.2 H (<1.2) Chloride 108 H (98-107) mmol/L Carbon Dioxide 19 L (22-30) mmol/L Glucose 113 H (74-99) mg/dL Alkaline Phosphatase 134 H (38-126) U/L Total Protein 6.2 L (6.3-8.2) g/dL
[2023-06-21] MEDS: FUROSEMIDE 10 MG/ML 4 ML VIAL IV SCH (17:59)
[2023-06-21] MEDS: ATORVASTATIN 10 MG TAB PO SCH (20:50)
[2023-06-21] MEDS: RIVAROXABAN 15 MG TAB PO SCH (20:50)
[2023-06-21] MEDS: METOPROLOL TARTRATE 25 MG TAB PO SCH (20:50)
[2023-06-22] MEDS: LEVOTHYROXINE 125 MCG TAB PO SCH (06:47)
[2023-06-22 08:46] LABS: Anisocytosis Slight; Basophils % (A) 0 %; Eosinophils # (A) 0.2 k/uL (0-0.7); Eosinophils % (A) 2 %; HCT 33.4 % (34.0-46.0); HGB 10.2 gm/dL (11.4-16.0); Hypochromasia Moderate; Lymphocytes # (A) 0.8 k/uL (1.0-4.8); Lymphocytes % (A) 9 %; MCH 21.9 pg (25.0-35.0); MCHC 30.5 g/dL (31.0-37.0); MCV 71.6 fL (80.0-100.0); Mean Platelet Volume 7.8; Microcytosis Moderate; Monocytes # (A) 0.9 k/uL (0-1.0); Monocytes % (A) 9 %; Neutrophils # (A) 7.2 k/uL (1.3-7.7); Neutrophils % (A) 78 %; Platelet Count 257 k/uL (150-450); RBC 4.67 m/uL (3.80-5.40); RDW 17.5 % (11.5-15.5); WBC 9.2 k/uL (3.8-10.6)
[2023-06-22 08:55] LABS: African American GFR (CKD) 66 (>60 ml/min/1.73 sqM); Anion Gap 14 mmol/L; Blood Urea Nitrogen 18 mg/dL (7-17); Calcium 9.3 mg/dL (8.4-10.2); Carbon Dioxide 26 mmol/L (22-30); Chloride 101 mmol/L (98-107); Glucose 108 mg/dL (74-99); Magnesium 1.8 mg/dL (1.6-2.3); Non-African American GFR(CKD) 57 (>60 ml/min/1.73 sqM); Potassium 3.7 mmol/L (3.5-5.1); Sodium 141 mmol/L (137-145)
[2023-06-22] MEDS ORDERED: ASPIRIN 325 MG TAB PO SCH (09:00)
[2023-06-22] MEDS: METOPROLOL TARTRATE 50 MG TAB PO SCH ×2 (09:07→22:06)
[2023-06-22] MEDS: PANTOPRAZOLE 40 MG TABLET PO SCH (09:08)
[2023-06-22] MEDS: lisinopriL 20 MG TAB PO SCH (09:08)
[2023-06-22] MEDS: ASPIRIN 81 MG PO SCH (09:08)
[2023-06-22] MEDS: DAPAGLIFLOZIN PROPANEDIOL 10 MG TABLET PO SCH (11:09)
--- NOTE | 2023-06-22 12:18 | P.CRDCN ---
History of Present Illness History of present illness: HISTORY OF PRESENT ILLNESS: This is a 88-year-old female with a past medical history significant for paroxysmal atrial fibrillation, mild to moderate mitral regurgitation, coronary artery disease with previous stenting, sick sinus syndrome, hypertension, and hyperlipidemia.. Patient follows in the office with Dr. Pierson. We have been asked to see the patient in consultation for CHF. Patient examined at the bedside in the emergency room. Patient states she presented to the hospital with a chief complaint of shortness of breath. She states she has been feeling short of breath for the past 2 days. She denied having any cough or fever at home. She denied waking up in the middle of the night short of breath. She also reports having lower extremity edema. The patient was found to be in acute CHF and was started on IV Lasix. Patient was in sinus mechanism upon admission. However bedside telemetry reveals atrial fibrillation with a heart rate in the 120s. Patient denies having any palpitations at this time. She denies a history of smoking. She reports that she underwent stenting to 15 to 20 years ago. She believes this may have been done at [facility]. DIAGNOSTICS: - EKG reveals sinus mechanism with no signs of acute ischemia. Bedside telemetry revealing atrial fibrillation with RVR - Chest xray cardiomegaly, pulmonary vascular congestion and bilateral pleural effusions. - Laboratory data: WBC 9.2. Hemoglobin 10.2. Platelet count platelet count 257. Sodium 141. Potassium 3.7. BUN 18. Creatinine 0.90. Troponin negative x 3. proBNP 4200. TSH 2.220. - Current home cardiac medications include lisinopril 20 mg daily, rosuvastatin 5 mg at night, Xarelto 20 mg at night, metoprolol tartrate 75 mg in the morning and 25 mg at night, and aspirin 81 mg Thursday. - Most recent echocardiogram obtained in March 2022 revealing ejection fraction 55%, moderate LVH, mild to moderate TR, mild to moderate MR reveals []. -Patient underwent Lexiscan stress test in May 2018 with no evidence of reversible ischemia REVIEW OF SYSTEMS: At the time of my exam: CONSTITUTIONAL: Denies fever or chills. HEENT: Denies blurred vision, vision changes, or eye pain. Denies hemoptysis CARDIOVASCULAR: Denies chest pain. Denies orthopnea. Denies PND. Denies palpitations RESPIRATORY: Reports shortness of breath. GASTROINTESTINAL: Denies abdominal pain. Denies nausea or vomiting. HEMATOLOGIC: Denies bleeding disorders. GENITOURINARY: Denies any blood in urine. SKIN: Denies pruitis. Denies rash. PHYSICAL EXAM: VITAL SIGNS: Reviewed. GENERAL: Well-developed in no acute distress. HEENT: Head is normocephalic. Pupils are equal, round. Sclerae anicteric. Mucous membranes of the mouth are moist. Neck supple. No JVD or thyromegaly LUNGS: Respirations even and unlabored. Lungs with a few crackles bilaterally HEART: Tachycardic. Irregular rate and rhythm. S1 and S2 heard. ABDOMEN: Soft. Nondistended. Nontender. EXTREMITIES: Normal range of motion. No clubbing or cyanosis. Peripheral pulses intact. Trace bilateral lower extremity edema NEUROLOGIC: Awake and alert. Oriented x 3. ASSESSMENT: Shortness of breath Acute heart failure with preserved EF, 55% in 2022 Coronary artery disease with previous stenting, details unknown Paroxysmal atrial fibrillation with RVR History of atrial fibrillation ablation, 2014 History of sick sinus syndrome Hypertension Hyperlipidemia PLAN: Obtain 2D echo to assess cardiac structure and function Continue IV Lasix. Decrease dose to 40 mg every 12 hours Daily weights, accurate intake and output, and monitoring of kidney function Increase metoprolol tartrate to 50 mg twice a day for optimal heart rate control Add Farxiga 10 mg daily Continue telemetry monitoring Further recommendations pending patient course Nurse practitioner note has been reviewed by physician. Signing provider agrees with the documented findings, assessment, and plan of care documented by DIGITAL PERFORMANCE ANALYST as a scribe. Past Medical History Past Medical History: Atrial Fibrillation, Cancer, Hyperlipidemia, Hypertension, Osteoarthritis (OA), Thyroid Disorder Additional Past Medical History / Comment(s): BREAST CANCER, History of Any Multi-Drug Resistant Organisms: None Reported Past Surgical History: Hysterectomy, Joint Replacement Additional Past Surgical History / Comment(s): 01-22-15 EP STUDY/CARDIAC ABLATION . THER PAST MEDICAL HX INCLUDES: bilat knee REPLACMENTS, thyroidectomy, and lumpectomy with radiation in 1986, Heart cath with cardiac stent. October 07. 2022 left mastectomy, Apr 18, 2022 right total shoulder, February 08 2022 cyst removal from inner nose. Past Anesthesia/Blood Transfusion Reactions: No Reported Reaction Past Psychological History: No Psychological Hx Reported Smoking Status: Never smoker Past Alcohol Use History: Occasional Past Drug Use History: None Reported - Past Family History Mother Family Medical History: Cancer Father History Unknown: Yes Medications and Allergies Home Medications Medication Instructions Recorded Confirmed Type Levothyroxine Sodium [Synthroid] 125 mcg PO DAILY 11/08/14 06/21/23 History Rivaroxaban [Xarelto] 20 mg PO HS 11/08/14 06/21/23 History lisinopriL [Prinivil] 20 mg PO DAILY 11/08/14 06/21/23 History Ergocalciferol [Vitamin D2 (1250 1,250 mcg PO SA 02/09/23 06/21/23 History Mcg = 64697 Iu)] Rosuvastatin Calcium 5 mg PO HS 02/09/23 06/21/23 History Aspirin EC [Ecotrin Low Dose] 81 mg PO MOWEFR 06/21/23 06/21/23 History Metoprolol Tartrate [Lopressor] 25 mg PO HS 06/21/23 06/21/23 History Metoprolol Tartrate [Lopressor] 75 mg PO DAILY 06/21/23 06/21/23 History Pantoprazole [Protonix] 40 mg PO DAILY 06/21/23 06/21/23 History Allergies Allergy/AdvReac Type Severity Reaction Status Date / Time Sulfa (Sulfonamide Allergy Rash/Hives Verified 06/21/23 14:08 Antibiotics) Physical Exam Vitals: Vital Signs Temp Pulse Pulse Resp BP BP Pulse Ox 06/22/23 06:48 123 H 17 127/66 99 06/22/23 04:13 113 H 17 129/84 06/22/23 02:00 110 H 20 145/97 94 L 06/22/23 00:00 105 H 22 125/72 94 L 06/21/23 23:00 69 19 103/89 97 06/21/23 22:00 93 22 139/108 97 06/21/23 21:00 98.1 F 102 H 16 110/62 06/21/23 18:00 63 20 162/79 95 06/21/23 16:00 60 16 172/98 99 06/21/23 14:06 54 L 20 142/73 95 06/21/23 11:26 98.1 F 75 18 176/67 99 Intake and Output 06/21/23 06/22/23 06/22/23 22:59 06:59 14:59 Output Total 1200 Balance -1200 Output: Urine 1200 Female - External 1200 Other: Voiding Method External Catheter Results 06/22/23 08:00 06/22/23 08:00 Cardiac Enzymes 06/21/23 06/21/23 06/21/23 Range/Units 12:43 12:43 15:36 AST 25 (14-36) U/L Troponin I 0.018 0.022 (0.000-0.034) ng/mL 06/21/23 Range/Units 18:42 AST (14-36) U/L Troponin I 0.016 (0.000-0.034) ng/mL Coagulation 06/21/23 Range/Units 12:43 PT 13.0 H (10.0-12.5) sec APTT 27.3 (22.0-30.0) sec CBC 06/21/23 06/22/23 Range/Units 12:43 08:00 WBC 12.2 H 9.2 (3.8-10.6) k/uL RBC 4.08 4.67 (3.80-5.40) m/uL Hgb 9.2 L 10.2 L (11.4-16.0) gm/dL Hct 29.3 L 33.4 L (34.0-46.0) % Plt Count 250 257 (150-450) k/uL Comprehensive Metabolic Panel 06/21/23 06/22/23 Range/Units 12:43 08:00 Sodium 139 141 (137-145) mmol/L Potassium 4.2 3.7 (3.5-5.1) mmol/L Chloride 108 H 101 (98-107) mmol/L Carbon Dioxide 19 L 26 (22-30) mmol/L BUN 17 18 H (7-17) mg/dL Creatinine 0.67 0.90 (0.52-1.04) mg/dL Glucose 113 H 108 H (74-99) mg/dL Calcium 9.0 9.3 (8.4-10.2) mg/dL AST 25 (14-36) U/L ALT 19 (4-34) U/L Alkaline Phosphatase 134 H (38-126) U/L Total Protein 6.2 L (6.3-8.2) g/dL Albumin 3.7 (3.5-5.0) g/dL Current Medications Generic Name Dose Route Start Last Admin Trade Name Carl PRN Reason Stop Dose Admin Aspirin 81 mg 06/22/23 09:00 06/22/23 09:08 Aspirin 81 Mg PO 81 mg DAILY [facility] Administration Atorvastatin Calcium 10 mg 06/21/23 21:00 06/21/23 20:50 Atorvastatin 10 Mg Tab PO 10 mg HS ALFREDO Administration Ergocalciferol 1,250 mcg 06/27/23 09:00 Ergocalciferol 1,250 Mcg (50,000 Iu) Capsule PO [facility] Furosemide 40 mg 06/21/23 18:00 06/22/23 09:08 Furosemide 10 Mg/Ml 4 Ml Vial IV 40 mg Q8H [facility] Administration Levothyroxine Sodium 125 mcg 06/22/23 06:30 06/22/23 06:47 Levothyroxine 125 Mcg Tab PO 125 mcg DAILY@0630 ALFREDO Administration Lisinopril 20 mg 06/22/23 09:00 06/22/23 09:08 Lisinopril 20 Mg Tab PO 20 mg DAILY [facility] Administration Metoprolol Tartrate 75 mg 06/22/23 09:00 06/22/23 09:07 Metoprolol Tartrate 50 Mg Tab PO 75 mg DAILY ALFREDO Administration Metoprolol Tartrate 25 mg 06/21/23 21:00 06/21/23 20:50 Metoprolol Tartrate 25 Mg Tab PO 25 mg HS [facility] Administration Nitroglycerin 1 inch 06/21/23 14:30 06/22/23 06:48 Nitroglycerin Oint 1 Inch/Gm Packet TOPICAL 06/22/23 14:31 Not Given Q6HR [facility] Pantoprazole Sodium 40 mg 06/22/23 07:30 06/22/23 09:08 Pantoprazole 40 Mg Tablet PO 40 mg [id number] [facility] Administration Rivaroxaban 15 mg 06/21/23 21:00 06/21/23 20:50 Rivaroxaban 15 Mg Tab PO 15 mg HS [facility] Administration Protocol Intake and Output 06/21/23 06/22/23 06/22/23 22:59 06:59 14:59 Output Total 1200 Balance -1200 Output: Urine 1200 Female - External 1200 Other: Voiding Method External Catheter 06/22/23 08:00 06/22/23 08:00
--- NOTE | 2023-06-22 13:46 | P.PN ---
Subjective Progress Note Date: 06/22/23 Hospital Course: Patient is a 88-year-old female with history of hypertension, dyslipidemia, hy pothyroidism, atrial fibrillation on Xarelto, recent breast cancer status postmastectomy presenting with shortness of breath. In the ED, temperature was 98.1, pulse 75, respiratory rate 18, blood pressure 176/67 down trended to 142/73, saturating at 99% on room air. WBC 12.2, hemoglobin 9.2 at baseline, potassium 4.2, bicarb 19, creatinine 0.67, glucose 113, lactate 1.7, troponin negative, proBNP 4200. Chest x-ray independently interpreted, shows interstitial opacities. EKG independently interpreted, shows sinus rhythm with occasional PVCs. Patient started on IV Lasix, admitted for CHF exacerbation. Cardiology consulted. Also in A-fib RVR, metoprolol increased. Subjective: Patient seen and examined at bedside. No acute events overnight. In A-fib RVR this morning, denies any significant symptoms. She claims that her shortness of breath is improved. Pertinent positives and negatives as discussed above, a complete review of systems was performed and all other systems are negative. Vitals Signs Reviewed. General: Nontoxic, no distress, appears at stated age Derm: Warm, dry Head: Atraumatic, normocephalic, symmetric Eyes: EOMI, no lid lag, anicteric sclera Mouth: No lip lesion, mucus membranes moist Cardiovascular: S1S2 irregular, tachycardic, no murmur Lungs: CTA bilateral, no rhonchi, no rales, no accessory muscle use Abdominal: Soft, nontender to palpation, no guarding, no appreciable organomegaly Ext: No gross muscle atrophy, no edema, no contractures Neuro: CN II-XI grossly intact, no focal neuro deficits Psych: Alert, oriented, appropriate affect Data Reviewed Today: Pertinent Labs: Hemoglobin 10.2, WBC 9.2, MCV 71.6, platelet 257, creatinine 0.90, magnesium 1.8, TSH 2.20 Imaging: No new imaging Assessment and Plan: Active: Acute heart failure, likely preserved EF, last EF in 2022 was 55% Paroxysmal atrial fibrillation with RVR Previous ablation in 2014 History of sick sinus syndrome History of CAD with prior stents Hypertension Dyslipidemia - Echocardiogram pending - Cardiology note reviewed, Lasix decreased to 40 IV every 12 hours, monitor electrolytes - Cardiology also started dapagliflozin 10 mg, and increase metoprolol to 50 twice daily - Continue Xarelto 20 - Continue aspirin 81 mg, atorvastatin 10 mg, lisinopril 20 daily Microcytic anemia - Reticulocyte count and iron studies pending - Repeat CBC tomorrow Hypothyroidism - Levothyroxine 125 mcg daily DVT ppx: Xarelto Code status: Full code Anticipated discharge place: Pending clinical course Anticipated discharge time: pending clinical course Objective - Vital Signs Vital signs: Vital Signs Temp 97.7 F 06/22/23 12:17 Pulse 117 H 06/22/23 12:17 Resp 18 06/22/23 12:17 BP 94/66 06/22/23 12:17 Pulse Ox 93 L 06/22/23 12:17 FiO2 Intake & Output 06/21/23 06/22/23 06/22/23 18:59 06:59 18:59 Output Total 1200 Balance -1200 Weight 99.79 kg Output: Urine 1200 Female - External 1200 Other: Voiding Method External Catheter - Labs CBC & Chem 7: 06/22/23 08:00 06/22/23 08:00 Labs: Abnormal Lab Results - Last 24 Hours (Table) 06/21/23 06/22/23 06/22/23 Range/Units 12:43 08:00 08:00 Hgb 10.2 L (11.4-16.0) gm/dL Hct 33.4 L (34.0-46.0) % MCV 71.6 L (80.0-100.0) fL MCH 21.9 L (25.0-35.0) pg MCHC 30.5 L (31.0-37.0) g/dL RDW 17.5 H (11.5-15.5) % Lymphocytes # 0.8 L (1.0-4.8) k/uL Chloride 108 H (98-107) mmol/L Carbon Dioxide 19 L (22-30) mmol/L BUN 18 H (7-17) mg/dL Glucose 113 H 108 H (74-99) mg/dL Alkaline Phosphatase 134 H (38-126) U/L Total Protein 6.2 L (6.3-8.2) g/dL
[2023-06-22] MEDS ORDERED: METOPROLOL TARTRATE 25 MG TAB PO SCH (21:00)
[2023-06-22] MEDS: RIVAROXABAN 20 MG TAB PO SCH (22:05)
[2023-06-22] MEDS: FUROSEMIDE 10 MG/ML 4 ML VIAL IV SCH (22:06)
[2023-06-22 23:22] LABS: % Iron Saturation 4.39 (12.00-45.00); Ferritin 31.6 ng/mL (10.0-291.0)
[2023-06-23] MEDS: SODIUM FERRIC GLUCONAT-SUCROSE 125 MG in SODIUM CHLORIDE 0.9% 100 ML IVPB SCH (09:31)
[2023-06-23 11:12] LABS: Anisocytosis Slight; Basophils % (A) 0 %; Eosinophils # (A) 0.2 k/uL (0-0.7); Eosinophils % (A) 2 %; HCT 33.1 % (34.0-46.0); HGB 9.9 gm/dL (11.4-16.0); Hypochromasia Marked; Lymphocytes # (A) 0.8 k/uL (1.0-4.8); Lymphocytes % (A) 8 %; MCHC 29.9 g/dL (31.0-37.0); MCV 73.6 fL (80.0-100.0); Microcytosis Moderate; Monocytes # (A) 0.8 k/uL (0-1.0); Monocytes % (A) 9 %; Neutrophils # (A) 7.9 k/uL (1.3-7.7); Neutrophils % (A) 81 %; Platelet Count 256 k/uL (150-450); RDW 17.3 % (11.5-15.5); WBC 9.8 k/uL (3.8-10.6)
[2023-06-23 11:32] LABS: African American GFR (CKD) 62 (>60 ml/min/1.73 sqM); Anion Gap 11 mmol/L; Blood Urea Nitrogen 27 mg/dL (7-17); Carbon Dioxide 26 mmol/L (22-30); Chloride 104 mmol/L (98-107); Glucose 139 mg/dL (74-99); Magnesium 1.9 mg/dL (1.6-2.3); Non-African American GFR(CKD) 54 (>60 ml/min/1.73 sqM); Potassium 3.3 mmol/L (3.5-5.1); Sodium 141 mmol/L (137-145)
[2023-06-23] MEDS: POTASSIUM CHLORIDE ER 20 MEQ TAB.ER PO STA (12:37)
--- NOTE | 2023-06-23 13:33 | P.PN ---
Subjective HISTORY OF PRESENT ILLNESS: This is a 88-year-old female with a past medical history significant for paroxysmal atrial fibrillation, mild to moderate mitral regurgitation, coronary artery disease with previous stenting, sick sinus syndrome, hypertension, and hyperlipidemia.. Patient follows in the office with Dr. Pierson. We have been asked to see the patient in consultation for CHF. Patient examined at the bedside in the emergency room. Patient states she presented to the hospital with a chief complaint of shortness of breath. She states she has been feeling short of breath for the past 2 days. She denied having any cough or fever at home. She denied waking up in the middle of the night short of breath. She also reports having lower extremity edema. The patient was found to be in acute CHF and was started on IV Lasix. Patient was in sinus mechanism upon admission. However bedside telemetry reveals atrial fibrillation with a heart rate in the 120s. Patient denies having any palpitations at this time. She denies a histor y of smoking. She reports that she underwent stenting to 15 to 20 years ago. She believes this may have been done at [facility]. DIAGNOSTICS: - EKG reveals sinus mechanism with no signs of acute ischemia. Bedside telemetry revealing atrial fibrillation with RVR - Chest xray cardiomegaly, pulmonary vascular congestion and bilateral pleural effusions. - Laboratory data: WBC 9.2. Hemoglobin 10.2. Platelet count platelet count 257. Sodium 141. Potassium 3.7. BUN 18. Creatinine 0.90. Troponin negative x 3. proBNP 4200. TSH 2.220. - Current home cardiac medications include lisinopril 20 mg daily, rosuvastatin 5 mg at night, Xarelto 20 mg at night, metoprolol tartrate 75 mg in the morning and 25 mg at night, and aspirin 81 mg Thursday. - Most recent echocardiogram obtained in March 2022 revealing ejection fraction 55%, moderate LVH, mild to moderate TR, mild to moderate MR. -Patient underwent Lexiscan stress test in May 2018 with no evidence of r eversible ischemia 06/23/2023 Patient examined this morning at the bedside. Patient denies chest pain or pressure. She denies shortness of breath. She remains on IV Lasix 40 mg every 12 hours. Kidney function from this morning remains pending. Bedside telemetry reveals atrial fibrillation with controlled ventricular rate. Vital signs are stable. Blood pressure 105/71. 2D echo remains pending. PHYSICAL EXAM: VITAL SIGNS: Reviewed. GENERAL: Well-developed in no acute distress. HEENT: Head is normocephalic. Pupils are equal, round. Sclerae anicteric. Mucous membranes of the mouth are moist. Neck supple. No JVD or thyromegaly LUNGS: Respirations even and unlabored. Lungs with a few crackles bilaterally HEART: Irregular rate and rhythm. S1 and S2 heard. ABDOMEN: Soft. Nondistended. Nontender. EXTREMITIES: Normal range of motion. No clubbing or cyanosis. Peripheral pulses intact. Trace bilateral lower extremity edema NEUROLOGIC: Awake and alert. Oriented x 3. ASSESSMENT: Shortness of breath Acute heart failure with preserved EF, 55% in 2022 Coronary artery disease with previous stenting, details unknown Paroxysmal atrial fibrillation with RVR History of atrial fibrillation ablation, 2014 History of sick sinus syndrome Hypertension Hyperlipidemia Hypokalemia PLAN: 2D echo has been ordered. Await results. Continue telemetry monitoring Continue IV Lasix for an additional 24 hours Daily weights, accurate intake and output, and monitoring of kidney function Replace potassium Further recommendations pending patient course Nurse practitioner note has been reviewed by physician. Signing provider agrees with the documented findings, assessment, and plan of care documented by MARINE FITTER as a scribe. Objective - Vital Signs Vital signs: Vital Signs Temp 98.1 F 06/22/23 20:30 Pulse 89 06/23/23 09:29 Resp 16 06/23/23 09:29 BP 105/71 06/23/23 09:29 Pulse Ox 96 06/23/23 09:29 FiO2 Intake & Output 06/22/23 06/23/23 06/23/23 18:59 06:59 18:59 Intake Total 118 Output Total 350 Balance -350 118 Weight 98 kg Intake: Oral 118 Output: Urine 350 Other: Voiding Method Toilet Toilet External Catheter External Catheter # Voids 1 - Labs CBC & Chem 7: 06/23/23 09:19 06/23/23 09:19 Labs: Abnormal Lab Results - Last 24 Hours (Table) 06/22/23 Range/Units 08:00 Iron 19 L (50-170) UG/DL % Saturation 4.39 L (12.00-45.00)
--- NOTE | 2023-06-23 13:53 | P.PN ---
Subjective Progress Note Date: 06/23/23 Hospital Course: Patient is a 88-year-old female with history of hypertension, dyslipidemia, hyp othyroidism, atrial fibrillation on Xarelto, recent breast cancer status postmastectomy presenting with shortness of breath. In the ED, temperature was 98.1, pulse 75, respiratory rate 18, blood pressure 176/67 down trended to 142/73, saturating at 99% on room air. WBC 12.2, hemoglobin 9.2 at baseline, potassium 4.2, bicarb 19, creatinine 0.67, glucose 113, lactate 1.7, troponin negative, proBNP 4200. Chest x-ray independently interpreted, shows interstitial opacities. EKG independently interpreted, shows sinus rhythm with occasional PVCs. Patient started on IV Lasix, admitted for CHF exacerbation. Cardiology consulted. Also in A-fib RVR, metoprolol increased. Subjective: Patient seen and examined at bedside. No acute events overnight. Claims that shortness of breath is improved. Pertinent positives and negatives as discussed above, a complete review of systems was performed and all other systems are negative. Vitals Signs Reviewed. General: Nontoxic, no distress, appears at stated age Derm: Warm, dry Head: Atraumatic, normocephalic, symmetric Eyes: EOMI, no lid lag, anicteric sclera Mouth: No lip lesion, mucus membranes moist Cardiovascular: S1S2 irregular, tachycardic, no murmur Lungs: CTA bilateral, no rhonchi, no rales, no accessory muscle use Abdominal: Soft, nontender to palpation, no guarding, no appreciable organomegaly Ext: No gross muscle atrophy, no edema, no contractures Neuro: CN II-XI grossly intact, no focal neuro deficits Psych: Alert, oriented, appropriate affect Data Reviewed Today: Pertinent Labs: Hemoglobin 9.9, MCV 73.6, potassium 3.3, magnesium 1.9, creatinine 0.95, total iron 19, TIBC 433, percent saturation 4.39, TSH 2.32 Imaging: EKG independently interpreted from yesterday evening, shows atrial fibrillation, rate controlled, T wave inversions in precordial leads Assessment and Plan: Active: Acute heart failure, likely preserved EF, last EF in 2022 was 55% Paroxysmal atrial fibrillation with RVR, now rate controlled Previous ablation in 2014 History of sick sinus syndrome History of CAD with prior stents Hypertension Dyslipidemia - Echocardiogram pending - Cardiology note reviewed, Lasix decreased to 40 IV every 12 hours, monitor electrolytes - Cardiology also started dapagliflozin 10 mg, and metoprolol to 50 twice daily - Continue Xarelto 20 - Continue aspirin 81 mg, atorvastatin 10 mg, lisinopril 20 daily Microcytic anemia Iron deficiency anemia Peptic ulcer disease -Patient had recent EGD which showed peptic ulcer disease, was started on pantoprazole Continue pantoprazole 40 Hemoglobin currently stable Started on IV iron daily Repeat CBC tomorrow Hypokalemia 40 oral potassium given today Repeat BMP tomorrow Hypothyroidism - Levothyroxine 125 mcg daily DVT ppx: Xarelto Code status: Full code Anticipated discharge place: Pending clinical course Anticipated discharge time: pending clinical course Objective - Vital Signs Vital signs: Vital Signs Temp 98.1 F 06/22/23 20:30 Pulse 99 06/23/23 12:09 Resp 16 06/23/23 12:09 BP 145/85 06/23/23 12:09 Pulse Ox 93 L 06/23/23 12:09 FiO2 Intake & Output 06/22/23 06/23/23 06/23/23 18:59 06:59 18:59 Intake Total 858 Output Total 350 1000 Balance -350 -142 Weight 98 kg 98 kg Intake: Oral 858 Output: Urine 350 1000 Other: Voiding Method Toilet Toilet External Catheter External Catheter # Voids 1 - Labs CBC & Chem 7: 06/23/23 09:19 06/23/23 09:19 Labs: Abnormal Lab Results - Last 24 Hours (Table) 06/22/23 06/23/23 06/23/23 Range/Units 08:00 09:19 09:19 Hgb 9.9 L (11.4-16.0) gm/dL Hct 33.1 L (34.0-46.0) % MCV 73.6 L (80.0-100.0) fL MCH 22.0 L (25.0-35.0) pg MCHC 29.9 L (31.0-37.0) g/dL RDW 17.3 H (11.5-15.5) % Neutrophils # 7.9 H (1.3-7.7) k/uL Lymphocytes # 0.8 L (1.0-4.8) k/uL Potassium 3.3 L (3.5-5.1) mmol/L BUN 27 H (7-17) mg/dL Glucose 139 H (74-99) mg/dL Iron 19 L (50-170) UG/DL % Saturation 4.39 L (12.00-45.00)
[2023-06-23 14:03] VITALS: BMI 38.2
[2023-06-24 01:38] VITALS: TEMP 97.9
--- NOTE | 2023-06-24 06:43 | CA ---
Transthoracic Echo Report Name: Jeanie Martinez Age: 88 Gender: F : 1935 Exam Date: 06/23/2023 09:38 Exam Location: [facility] Ht (in): 63 Wt (lb): 220 Ordering Physician: Jesse Oviedo DO Attending/Referring Phys: Workforce Consultant Tasha Hoang RDCS Procedure CPT: Indications: Heart failure Cardiac Hx: Technical Quality: Technically difficult study Contrast 1: Definity Total Dose (mL): 2 Contrast 2: Total Dose (mL): MEASUREMENTS (Male / Female) Normal Values 2D ECHO LVOT Diameter 2.1 cm LV Diastolic Volume MOD BP 69.3 cm??? 67 - 155 / 56 - 104 cm??? LV Systolic Volume MOD BP 28.7 cm??? 22 - 58 / 19 - 49 cm??? LV Ejection Fraction MOD BP 58.5 % >= 55 % LV Cardiac Index MOD BP 1731.1 cm???/min???m??? LV Diastolic Volume MOD 4C 75.4 cm??? LV Systolic Volume MOD 4C 30.4 cm??? LV Ejection Fraction MOD 4C 59.7 % LV Cardiac Index MOD 4C 1920.7 cm???/min???m??? LV Diastolic Length 4C 7.6 cm LV Systolic Length 4C 6.6 cm LV Diastolic Volume MOD 2C 62.1 cm??? LV Systolic Volume MOD 2C 26.4 cm??? LV Ejection Fraction MOD 2C 57.5 % LV Cardiac Index MOD 2C 1522.2 cm???/min???m??? LV Diastolic Length 2C 7.4 cm LV Systolic Length 2C 6.3 cm LA Volume 146.0 cm??? 18 - 58 / 22 - 52 cm??? LA Volume Index 67.7 cm???/m??? 16 - 28 cm???/m??? Ascending Aorta Diameter 4.1 cm DOPPLER AV Peak Velocity 142.5 cm/s AV Peak Gradient 8.1 mmHg AV Mean Velocity 102.7 cm/s AV Mean Gradient 4.6 mmHg AV Velocity Time Integral 31.5 cm LVOT Peak Velocity 82.6 cm/s LVOT Peak Gradient 2.7 mmHg LVOT Velocity Time Integral 13.0 cm LVOT Stroke Volume 45.1 cm??? LVOT Stroke Volume Index 22.4 ml/m??? LVOT Cardiac Index 1923.1 cm???/min???m??? AV Area Cont Eq vti 1.4 cm??? AV Area Cont Eq pk 2.0 cm??? TR Peak Velocity 223.3 cm/s TR Peak Gradient 19.9 mmHg Right Atrial Pressure 5.0 mmHg Pulmonary Artery Systolic Pressu 24.9 mmHg Right Ventricular Systolic Press 24.9 mmHg PV Peak Velocity 80.9 cm/s PV Peak Gradient 2.6 mmHg FINDINGS Left Ventricle Left ventricular ejection fraction is estimated at 45-50 %. Left ventricular cavity size normal. No obvious regional wall motion abnormalities. Right Ventricle Right ventricle not well visualized. Right ventricular systolic pressure within normal limits. Right Atrium Moderate right atrial dilatation by visual. Left Atrium Severely increased left atrial volume. Moderately increased left atrial area. Mitral Valve Structurally normal mitral valve. No evidence for mitral valve prolapse. No mitral stenosis. Trace mitral regurgitation. Aortic Valve Trileaflet aortic valve. No aortic stenosis. No aortic regurgitation. Diffuse thickening of the aortic valve cusps with reduced excursion. Tricuspid Valve Structurally normal tricuspid valve. No tricuspid stenosis. Trace tricuspid regurgitation. Pulmonic Valve Pulmonic valve not well visualized. No pulmonic stenosis. No pulmonic regurgitation. Pericardium No pericardial effusion. Aorta Aortic annulus normal. Ascending aorta mildly dilated. CONCLUSIONS Technically difficult study. Poorly visualized endocardial and poorly visualized and the cardiac valves Mildly impaired LV function was EF between 45-50% Previewed by: Dr. Howard Leyva MD (Electronically Signed) Final Date: 24 Jun 2023 06:42
[2023-06-24 10:51] LABS: Anisocytosis Slight; Basophils % (A) 0 %; Eosinophils # (A) 0.2 k/uL (0-0.7); Eosinophils % (A) 2 %; HCT 34.9 % (34.0-46.0); HGB 10.4 gm/dL (11.4-16.0); Hypochromasia Marked; Lymphocytes # (A) 0.8 k/uL (1.0-4.8); Lymphocytes % (A) 7 %; MCH 21.9 pg (25.0-35.0); MCHC 29.6 g/dL (31.0-37.0); Mean Platelet Volume 7.5; Microcytosis Moderate; Monocytes # (A) 0.9 k/uL (0-1.0); Monocytes % (A) 9 %; Neutrophils # (A) 8.2 k/uL (1.3-7.7); Neutrophils % (A) 81 %; Platelet Count 266 k/uL (150-450); RBC 4.72 m/uL (3.80-5.40); RDW 17.6 % (11.5-15.5); WBC 10.2 k/uL (3.8-10.6)
[2023-06-24 11:02] LABS: African American GFR (CKD) 47 (>60 ml/min/1.73 sqM); Anion Gap 11 mmol/L; Blood Urea Nitrogen 32 mg/dL (7-17); Calcium 9.4 mg/dL (8.4-10.2); Carbon Dioxide 27 mmol/L (22-30); Chloride 104 mmol/L (98-107); Glucose 139 mg/dL (74-99); Non-African American GFR(CKD) 41 (>60 ml/min/1.73 sqM); Potassium 3.9 mmol/L (3.5-5.1); Sodium 142 mmol/L (137-145)
--- NOTE | 2023-06-24 13:09 | P.PN ---
Subjective HISTORY OF PRESENT ILLNESS: This is a 88-year-old female with a past medical history significant for paroxysmal atrial fibrillation, mild to moderate mitral regurgitation, coronary artery disease with previous stenting, sick sinus syndrome, hypertension, and hyperlipidemia.. Patient follows in the office with Dr. Pierson. We have been asked to see the patient in consultation for CHF. Patient examined at the bedside in the emergency room. Patient states she presented to the hospital with a chief complaint of shortness of breath. She states she has been feeling short of breath for the past 2 days. She denied having any cough or fever at home. She denied waking up in the middle of the night short of breath. She also reports having lower extremity edema. The patient was found to be in acute CHF and was started on IV Lasix. Patient was in sinus mechanism upon admission. However bedside telemetry reveals atrial fibrillation with a heart rate in the 120s. Patient denies having any palpitations at this time. She denies a histor y of smoking. She reports that she underwent stenting to 15 to 20 years ago. She believes this may have been done at [facility]. DIAGNOSTICS: - EKG reveals sinus mechanism with no signs of acute ischemia. Bedside telemetry revealing atrial fibrillation with RVR - Chest xray cardiomegaly, pulmonary vascular congestion and bilateral pleural effusions. - Laboratory data: WBC 9.2. Hemoglobin 10.2. Platelet count platelet count 257. Sodium 141. Potassium 3.7. BUN 18. Creatinine 0.90. Troponin negative x 3. proBNP 4200. TSH 2.220. - Current home cardiac medications include lisinopril 20 mg daily, rosuvastatin 5 mg at night, Xarelto 20 mg at night, metoprolol tartrate 75 mg in the morning and 25 mg at night, and aspirin 81 mg Thursday. - Most recent echocardiogram obtained in March 2022 revealing ejection fraction 55%, moderate LVH, mild to moderate TR, mild to moderate MR. -Patient underwent Lexiscan stress test in May 2018 with no evidence of r eversible ischemia 06/23/2023 Patient examined this morning at the bedside. Patient denies chest pain or pressure. She denies shortness of breath. She remains on IV Lasix 40 mg every 12 hours. Kidney function from this morning remains pending. Bedside telemetry reveals atrial fibrillation with controlled ventricular rate. Vital signs are stable. Blood pressure 105/71. 2D echo remains pending. 06/24/2023 Patient examined this morning at the bedside. Patient currently denies chest pain or pressure. She denies shortness of breath. She remains on IV Lasix. Patient's blood pressures are soft this morning with a systolic in the 90s. She denies any dizziness or lightheadedness. Echocardiogram completed revealing ejection fraction 45 to 50% PHYSICAL EXAM: VITAL SIGNS: Reviewed. GENERAL: Well-developed in no acute distress. HEENT: Head is normocephalic. Pupils are equal, round. Sclerae anicteric. Mucous membranes of the mouth are moist. Neck supple. No JVD or thyromegaly LUNGS: Respirations even and unlabored. Lungs diminished. HEART: Irregular rate and rhythm. S1 and S2 heard. ABDOMEN: Soft. Nondistended. Nontender. EXTREMITIES: Normal range of motion. No clubbing or cyanosis. Peripheral pulses intact. Trace bilateral lower extremity edema NEUROLOGIC: Awake and alert. Oriented x 3. ASSESSMENT: Shortness of breath Acute heart failure with mildly reduced EF, 45 to 50% Coronary artery disease with previous stenting, details unknown Paroxysmal atrial fibrillation with RVR History of atrial fibrillation ablation, 2014 History of sick sinus syndrome Hypertension Hyperlipidemia Hypokalemia PLAN: Discontinue IV Lasix Begin oral Lasix 40 mg daily Decrease lisinopril to 10 mg daily secondary to soft blood pressures Continue to monitor patient for an additional 24 hours Anticipate discharge home tomorrow if patient remains stable Further recommendations pending patient course Nurse practitioner note has been reviewed by physician. Signing provider agrees with the documented findings, assessment, and plan of care documented by ELECTRICIAN RE[employer]IER MAINTENANCE as a scribe. Objective - Vital Signs Vital signs: Vital Signs Temp 97.9 F 06/23/23 20:00 Pulse 91 06/24/23 12:00 Resp 18 06/24/23 12:00 BP 94/59 06/24/23 12:00 Pulse Ox 96 06/24/23 12:00 FiO2 Intake & Output 06/23/23 06/24/23 06/24/23 18:59 06:59 18:59 Intake Total 858 118 Output Total 1000 450 Balance -142 -450 118 Weight 98 kg 97.3 kg Intake: Oral 858 118 Output: Urine 1000 450 Other: Voiding Method Toilet Toilet External Catheter External Catheter # Voids 1 - Labs CBC & Chem 7: 06/24/23 09:47 06/24/23 09:47 Labs: Abnormal Lab Results - Last 24 Hours (Table) 06/24/23 06/24/23 Range/Units 09:47 09:47 Hgb 10.4 L (11.4-16.0) gm/dL MCV 74.0 L (80.0-100.0) fL MCH 21.9 L (25.0-35.0) pg MCHC 29.6 L (31.0-37.0) g/dL RDW 17.6 H (11.5-15.5) % Neutrophils # 8.2 H (1.3-7.7) k/uL Lymphocytes # 0.8 L (1.0-4.8) k/uL BUN 32 H (7-17) mg/dL Creatinine 1.19 H (0.52-1.04) mg/dL Glucose 139 H (74-99) mg/dL
--- NOTE | 2023-06-24 15:58 | P.PN ---
Subjective Progress Note Date: 06/24/23 Hospital course: Patient is a very pleasant 88-year-old female with a past medical history of hypertension, dyslipidemia, hypothyroidism, atrial fibrillation on Xarelto, recent breast cancer status post mastectomy presenting with shortness of breath. In the ED, temperature was 98.1, pulse 75, respiratory rate 18, blood pressure 176/67 down trended to 142/73, saturating at 99% on room air. WBC 12.2, hemoglobin 9.2 at baseline, potassium 4.2, bicarb 19, creatinine 0.67, glucose 113, lactate 1.7, troponin negative, proBNP 4200. Chest x-ray independently interpreted, shows interstitial opacities. EKG revealed sinus rhythm with occasional PVCs. Patient started on IV Lasix, admitted for CHF exacerbation. Patient admitted under services with consultation to cardiology.patient later went into atrial fibrillation with RVR in 130s and an EKG was completed, at that time EKG showing atrial fibrillation at 98 bpm. Metoprolol was increased. Echocardiogram was completed showing a reduced EF of 45 to 50% with no significant valvular or structural abnormalities reported. Physical exam: Patient seen and fully evaluated at bedside this morning. Patient reports other than feeling slightly tired she honestly feels great this morning and states I do not feel sick at all. Patient is aware that cardiology is recommending continued close monitoring for an additional 24 hours with plans to discharge home tomorrow. Patient denies having any further questions, needs, concerns, or complaints at this time. Vital signs reviewed and stable. General: Nontoxic, no distress and appears stated age. Derm: Skin warm and dry, normal coloration for ethnicity. Head: Atraumatic, normocephalic and symmetric. Eyes: EOMs intact, no lid lag, and anicteric sclera Mouth: no lip lesions, mucus membranes moist Cardiovascular: regular rate and rhythm with normal S1S2, no murmur, positive posterior tibial pulses bilaterally, and cap refill < 2 seconds. Lungs: Respirations even, regular, and unlabored on room air. Lungs diminished, otherwise no rhonchi, no rales, no wheezing, and no accessory muscle usage. Abdominal: soft, nontender to palpation, no guarding, no appreciable organomegaly Ext: ROM intact. No gross muscle atrophy, no edema, no contractures Neuro: Speech clear, face symmetrical and CN II-XII grossly intact with no noted focal neuro deficits Psych: Alert and oriented to person, place, time, and situation. Appropriate and pleasant affect. Assessment and Plan of Care: Acute systolic heart failure, EF 45 to 50% Paroxysmal atrial fibrillation with RVR, now rate controlled Previous ablation in 2014 History of sick sinus syndrome History of CAD with prior stents Hypertension Dyslipidemia -Echocardiogram was completed showing a reduced EF of 45 to 50% with no significant valvular or structural abnormalities reported. - Cardiology following, discussed plan of care recommending decreasing lisinopril to 10 mg daily secondary to soft blood pressures and started patient on oral Lasix 40 mg daily. Cardiology recommending monitoring patient for an additional 24 hours and anticipate clearing for discharge tomorrow if patient remains stable. -Patient to continue cardiac medication regimen with dapagliflozin 10 mg, metoprolol 50 mg twice daily, Xarelto 20 mg nightly, aspirin 81 mg daily, and atorvastatin 10 mg nightly. Microcytic anemia, stable Iron deficiency anemia Peptic ulcer disease -Patient had recent EGD which showed peptic ulcer disease, was started on pantoprazole 40 mg daily. -Hemoglobin currently stable at 10.4 -Patient received 2 doses of IV Ferrlecit and to receive third dose on 06/25/2023 and anticipate discharging home on oral ferrous sulfate 325 mg daily. Hypokalemia, resolved. Hypothyroidism. Continue levothyroxine 125 mcg daily Data and imaging reviewed: Morning labs reviewed. CBC showing stable microcytic anemia with hemoglobin of 10.4. BMP showing mild elevation of renal function with BUN of 32, creatinine 1.19, GFR 41. Echocardiogram was completed showing a reduced EF of 45 to 50% with no significant valvular or structural abnormalities reported. Vital signs reviewed. Blood pressure 97/56, heart rate 89, respiratory rate 16, temp 97.9 F, and SpO2 of 98% on room air. CODE STATUS: Full code DVT prophylaxis: Xarelto Anticipated discharge date: Plan for likely discharge home tomorrow morning once cleared by cardiology. Anticipated discharge place: Home Patient was seen independently by Nurse Pracitioner. This document was prepared using [employer] dictation software. Please allow for errors in receiving specialist, while rare they do occur. Tito Rodarte NP rendered care for this patient independently, reviewed the findings and plan as documented in the note above. I did not physically speak with or examine the patient on this date. Objective - Vital Signs Vital signs: Vital Signs Temp 97.9 F 06/23/23 20:00 Pulse 80 06/24/23 04:00 Resp 18 06/24/23 04:00 BP 111/66 06/24/23 04:00 Pulse Ox 96 06/24/23 04:00 FiO2 Intake & Output 06/23/23 06/24/23 06/24/23 18:59 06:59 18:59 Intake Total 858 Output Total 1000 450 Balance -142 -450 Weight 98 kg 97.3 kg Intake: Oral 858 Output: Urine 1000 450 Other: Voiding Method Toilet Toilet External Catheter External Catheter # Voids 1 - Labs CBC & Chem 7: 06/24/23 09:47 06/24/23 09:47 Labs: Abnormal Lab Results - Last 24 Hours (Table) 06/23/23 06/23/23 Range/Units 09:19 09:19 Hgb 9.9 L (11.4-16.0) gm/dL Hct 33.1 L (34.0-46.0) % MCV 73.6 L (80.0-100.0) fL MCH 22.0 L (25.0-35.0) pg MCHC 29.9 L (31.0-37.0) g/dL RDW 17.3 H (11.5-15.5) % Neutrophils # 7.9 H (1.3-7.7) k/uL Lymphocytes # 0.8 L (1.0-4.8) k/uL Potassium 3.3 L (3.5-5.1) mmol/L BUN 27 H (7-17) mg/dL Glucose 139 H (74-99) mg/dL
[2023-06-25 07:19] LABS: African American GFR (CKD) 62 (>60 ml/min/1.73 sqM); Anion Gap 10 mmol/L; Blood Urea Nitrogen 32 mg/dL (7-17); Calcium 9.2 mg/dL (8.4-10.2); Carbon Dioxide 27 mmol/L (22-30); Chloride 103 mmol/L (98-107); Glucose 114 mg/dL (74-99); Magnesium 1.9 mg/dL (1.6-2.3); Non-African American GFR(CKD) 54 (>60 ml/min/1.73 sqM); Potassium 3.5 mmol/L (3.5-5.1); Sodium 140 mmol/L (137-145)
[2023-06-25] MEDS: lisinopriL 10 MG TAB PO SCH (08:46)
[2023-06-25] MEDS: FUROSEMIDE 40 MG TAB PO SCH (08:47)
[2023-06-25 09:23] VITALS: BP 139/70; PULSE 125; RESP 17
--- NOTE | 2023-06-25 11:34 | P.PN ---
Subjective HISTORY OF PRESENT ILLNESS: This is a 88-year-old female with a past medical history significant for paroxysmal atrial fibrillation, mild to moderate mitral regurgitation, coronary artery disease with previous stenting, sick sinus syndrome, hypertension, and hyperlipidemia.. Patient follows in the office with Dr. Pierson. We have been asked to see the patient in consultation for CHF. Patient examined at the bedside in the emergency room. Patient states she presented to the hospital with a chief complaint of shortness of breath. She states she has been feeling short of breath for the past 2 days. She denied having any cough or fever at home. She denied waking up in the middle of the night short of breath. She also reports having lower extremity edema. The patient was found to be in acute CHF and was started on IV Lasix. Patient was in sinus mechanism upon admission. However bedside telemetry reveals atrial fibrillation with a heart rate in the 120s. Patient denies having any palpitations at this time. She denies a histor y of smoking. She reports that she underwent stenting to 15 to 20 years ago. She believes this may have been done at [facility]. DIAGNOSTICS: - EKG reveals sinus mechanism with no signs of acute ischemia. Bedside telemetry revealing atrial fibrillation with RVR - Chest xray cardiomegaly, pulmonary vascular congestion and bilateral pleural effusions. - Laboratory data: WBC 9.2. Hemoglobin 10.2. Platelet count platelet count 257. Sodium 141. Potassium 3.7. BUN 18. Creatinine 0.90. Troponin negative x 3. proBNP 4200. TSH 2.220. - Current home cardiac medications include lisinopril 20 mg daily, rosuvastatin 5 mg at night, Xarelto 20 mg at night, metoprolol tartrate 75 mg in the morning and 25 mg at night, and aspirin 81 mg Thursday. - Most recent echocardiogram obtained in March 2022 revealing ejection fraction 55%, moderate LVH, mild to moderate TR, mild to moderate MR. -Patient underwent Lexiscan stress test in May 2018 with no evidence of r eversible ischemia 06/23/2023 Patient examined this morning at the bedside. Patient denies chest pain or pressure. She denies shortness of breath. She remains on IV Lasix 40 mg every 12 hours. Kidney function from this morning remains pending. Bedside telemetry reveals atrial fibrillation with controlled ventricular rate. Vital signs are stable. Blood pressure 105/71. 2D echo remains pending. 06/24/2023 Patient examined this morning at the bedside. Patient currently denies chest pain or pressure. She denies shortness of breath. She remains on IV Lasix. Patient's blood pressures are soft this morning with a systolic in the 90s. She denies any dizziness or lightheadedness. Echocardiogram completed revealing ejection fraction 45 to 50% 06/25/2023 Patient examined this morning at the bedside. Patient denies chest pain or pressure. She denies shortness of breath. Vital signs are stable. PHYSICAL EXAM: VITAL SIGNS: Reviewed. GENERAL: Well-developed in no acute distress. HEENT: Head is normocephalic. Pupils are equal, round. Sclerae anicteric. Mucous membranes of the mouth are moist. Neck supple. No JVD or thyromegaly LUNGS: Respirations even and unlabored. Lungs diminished. HEART: Irregular rate and rhythm. S1 and S2 heard. ABDOMEN: Soft. Nondistended. Nontender. EXTREMITIES: Normal range of motion. No clubbing or cyanosis. Peripheral pulses intact. Trace bilateral lower extremity edema NEUROLOGIC: Awake and alert. Oriented x 3. ASSESSMENT: Shortness of breath Acute heart failure with mildly reduced EF, 45 to 50% Coronary artery disease with previous stenting, details unknown Paroxysmal atrial fibrillation with RVR History of atrial fibrillation ablation, 2014 History of sick sinus syndrome Hypertension Hyperlipidemia Hypokalemia PLAN: Continue current cardiac medications Discontinue aspirin Patient is stable for discharge home today from a cardiac standpoint She is to follow-up in the office postdischarge Nurse practitioner note has been reviewed by physician. Signing provider agrees with the documented findings, assessment, and plan of care documented by [employer]YING SQU[employer] SALESPERSON as a scribe. Objective - Vital Signs Vital signs: Vital Signs Temp 97.9 F 06/25/23 08:43 Pulse 125 H 06/25/23 08:43 Resp 17 06/25/23 08:43 BP 139/70 06/25/23 08:43 Pulse Ox 99 06/25/23 08:43 FiO2 Intake & Output 06/24/23 06/25/23 06/25/23 18:59 06:59 18:59 Intake Total 776 120 118 Balance 776 120 118 Weight 66.1 kg Intake: Oral 776 120 118 Other: Voiding Method Toilet Toilet - Labs CBC & Chem 7: 06/24/23 09:47 06/25/23 06:38 Labs: Abnormal Lab Results - Last 24 Hours (Table) 06/25/23 Range/Units 06:38 BUN 32 H (7-17) mg/dL Glucose 114 H (74-99) mg/dL
--- NOTE | 2023-06-25 15:46 | P.DS ---
Providers Date of admission: 06/23/23 12:05 Expected date of discharge: 06/25/23 Attending physician: Yu Osullivan DO Consults: 06/21/23 14:25 Consult Physician Routine Consulting Provider: Jorge Durand Consult Reason/Comments: chf Do you want consulting provider notified?: Yes Primary care physician: [facility] Course: Acute systolic heart failure, EF 45 to 50% Paroxysmal atrial fibrillation with RVR, now rate controlled Previous ablation in 2014 History of sick sinus syndrome History of CAD with prior stents Hypertension Dyslipidemia Microcytic anemia, stable Iron deficiency anemia Peptic ulcer disease Hypokalemia Hypothyroidism Hospital course: Patient is a very pleasant 88-year-old female with a past medical history of hypertension, dyslipidemia, hypothyroidism, atrial fibrillation on Xarelto, recent breast cancer status post mastectomy presented with shortness of breath. In the ED, temperature was 98.1, pulse 75, respiratory rate 18, blood pressure 176/67 down trended to 142/73, saturating at 99% on room air. WBC 12.2, hemoglobin 9.2 at baseline, potassium 4.2, bicarb 19, creatinine 0.67, glucose 113, lactate 1.7, troponin negative, proBNP 4200. Chest x-ray independently interpreted, shows interstitial opacities. EKG revealed sinus rhythm with occasional PVCs. Patient started on IV Lasix, admitted for CHF exacerbation. Patient admitted under services with consultation to cardiology.patient later went into atrial fibrillation with RVR in 130s and an EKG was completed, at that time EKG showing atrial fibrillation at 98 bpm. Metoprolol was increased. Echocardiogram was completed showing a reduced EF of 45 to 50% with no significant valvular or structural abnormalities reported. Pt was treated successfully with lasix, then transitioned to PO. Pts GDMT for heart failure included the addition of: farxiga, and the modification of metoprolol to 50mg BID, decrease of lisinopril to 5mg daily, and increase of lasix to 40mg daily. Ferrous sulfate was added for SHARMIN noted during hospitalization. I spent 38 min coordinating this discharge. Gen: In NAD, non-toxic HEENT: normocephalic, atraumatic, hearing acuity is intant, mucous membranes moist CVS: perfusing all extremities well, no pitting edema, Respiratory: symmetric chest expansion, no accessory muscle use, GI: soft, NTTP, ND, : no suprapubic tenderness, no CVA tenderness MSK/Derm: no rashes, cyanosis Neuro: CN II-XII intact, no motor weakness, Psych: cooperative, euthymic mood, judgment and insight is intact Plan - Discharge Summary Discharge Rx Participant: Yes New Discharge Prescriptions: New Dapagliflozin Propanediol [Farxiga] 10 mg PO DAILY #30 tab Ferrous Sulfate [Feosol] 325 mg PO DAILY #30 tab Furosemide [Lasix] 40 mg PO DAILY #30 tab lisinopriL [Zestril] 10 mg PO DAILY #30 tab Metoprolol Tartrate [Lopressor] 50 mg PO BID #60 tab Continue Rivaroxaban [Xarelto] 20 mg PO HS Levothyroxine Sodium [Synthroid] 125 mcg PO DAILY Rosuvastatin Calcium 5 mg PO HS Pantoprazole [Protonix] 40 mg PO DAILY Ergocalciferol [Vitamin D2 (1250 Mcg = 36561 Iu)] 1,250 mcg PO SA Aspirin EC [Ecotrin Low Dose] 81 mg PO MOWEFR Discontinued lisinopriL [Prinivil] 20 mg PO DAILY Metoprolol Tartrate [Lopressor] 75 mg PO DAILY Metoprolol Tartrate [Lopressor] 25 mg PO HS Discharge Medication List Levothyroxine Sodium [Synthroid] 125 mcg PO DAILY 11/08/14 [History] Rivaroxaban [Xarelto] 20 mg PO HS 11/08/14 [History] Ergocalciferol [Vitamin D2 (1250 Mcg = 87543 Iu)] 1,250 mcg PO SA 02/09/23 [History] Rosuvastatin Calcium 5 mg PO HS 02/09/23 [History] Aspirin EC [Ecotrin Low Dose] 81 mg PO MOWEFR 06/21/23 [History] Pantoprazole [Protonix] 40 mg PO DAILY 06/21/23 [History] Dapagliflozin Propanediol [Farxiga] 10 mg PO DAILY #30 tab 06/25/23 [Rx] Ferrous Sulfate [Feosol] 325 mg PO DAILY #30 tab 06/25/23 [Rx] Furosemide [Lasix] 40 mg PO DAILY #30 tab 06/25/23 [Rx] Metoprolol Tartrate [Lopressor] 50 mg PO BID #60 tab 06/25/23 [Rx] lisinopriL [Zestril] 10 mg PO DAILY #30 tab 06/25/23 [Rx] Follow up Appointment(s)/Referral(s): Charli Pierson MD [STAFF PHYSICIAN] - 07/01/23 10:15 am (Thursday. [address] location) Lashae Gunn MD [Primary Care Provider] - 1-2 days (Office booking is full, the office will call patient with an apt. ) Patient Instructions/Handouts: Heart Failure (DC) Discharge Disposition: HOME SELF-CARE
[2023-06-27] MEDS ORDERED: ERGOCALCIFEROL 1,250 MCG (50,000 IU) CAPSULE PO SCH (09:00)
== END 2023-06-25 14:08 | disposition home or self-care (01) | DRG 291 ==
LOC: EC 11:18 → 3SCARD 14:25 → OBSVTOIN 06-23 12:05
PROVIDERS: ADMIT Internal Medicine; ATTEND Internal Medicine
DX: I11.0 Hypertensive heart disease with heart failure (principal); I50.21 Acute systolic (congestive) heart failure; I48.0 Paroxysmal atrial fibrillation; E78.5 Hyperlipidemia, unspecified; I25.10 Atherosclerotic heart disease of native coronary artery without angina pectoris; Z95.5 Presence of coronary angioplasty implant and graft; R09.89 Other specified symptoms and signs involving the circulatory and respiratory systems; I49.3 Ventricular premature depolarization; I08.1 Rheumatic disorders of both mitral and tricuspid valves; I49.5 Sick sinus syndrome; D50.9 Iron deficiency anemia, unspecified; E87.6 Hypokalemia; E03.9 Hypothyroidism, unspecified; Z79.890 Hormone replacement therapy; Z88.2 Allergy status to sulfonamides; Z96.653 Presence of artificial knee joint, bilateral; Z79.01 Long term (current) use of anticoagulants
CPT/HCPCS: 36415; 71046; 80048; 80053; 82728; 83540; 83550; 83605; 83735; 83880; 84443; 84466; 84484; 85025; 85045; 85610; 85730; 93005; 93306; 94760; 96374; 96376; 99285